=== PATIENT | male | born 1960 | race Caucasian/White ===

== ENCOUNTER 2016-05-27 09:33 | Inpatient (IN) | payer OTHER ==
[~2016-05-27] VITALS: Ht 182.9 cm; Wt 172.4 kg
[~2016-05-27 09:33] MED LIST: AMOXIL500 MG PO; BACTRIM DS 8001 TAB PO; CEFTIN 250 #201 PAC PO; COUMADIN 10 MG10 MG PO; DILTIAZEM HCL240 MG PO; GLUCOPHAGE500 MG PO; K-DUR 20MEQ TA20 MEQ PO; LANOXIN-DIGO0.125 MG PO; LASIX40 MG PO; LOPRESSOR 12.12.5 MG PO; MELATONIN5 M1 PO; MYCOSTATIN POWD15 GM TOP; NICODERM C21 MG/24 H TOP; Senokot S PO; VENTOLIN1 PUF INH
--- NOTE | 2016-05-27 09:52 | ED DYSPNEA/ASTHMA COMPLAINT ---
History of Present Illness General Chief Complaint: Upper Respiratory Sx/Fever Stated Complaint: URI Source: patient, old records Exam Limitations: no limitations Vital Signs & Intake/Output Vital Signs & Intake/Output Vital Signs Date Time Temp Pulse Resp B/P Pulse O2 O2 Flow FiO2 Ox Delivery Rate 05/27 1242 98 96 05/27 1214 85 Nasal 5.0L Cannula 05/27 1202 96.9 95 20 126/66 84 Nasal 4.0L Cannula 05/27 1034 92 Nasal 5.0L Cannula 05/27 1026 95 Nasal 2.0L Cannula 05/27 0945 96.5 106 18 145/96 88 Room Air Allergies Coded Allergies: NO KNOWN ALLERGIES (09/21/13) Reconcile Medications Digoxin 125 MCG TABLET 1 TAB PO 1700 HEART (Reported) Diltiazem HCl (Diltiazem 24HR ER) 240 MG CAP.ER.24H 1 CAP PO DAILY HEART ( Reported) Furosemide 40 MG TABLET 1 TAB PO BID WATER PILL (Reported) Metformin HCl 500 MG TABLET 1 TAB PO BID DIABETES (Reported) Metoprolol Tartrate 25 MG TABLET 0.5 TAB PO BID HEART (Reported) Potassium Chloride 20 MEQ TAB.ER.PRT 1 TAB PO DAILY SUPPLEMENT (Reported) Warfarin Sodium (Coumadin) 10 MG TABLET 1 TAB PO DAILY BLOOD THINNER ( Reported) Triage Note: 56 Y/O MALE C/O URI SYMPTOMS X 1 WEEK; C/O NASAL CONGESTION, WATERY EYES AND CONGESTED COUGH - "THE COUGH IS GETTING BETTER". REDNESS AND TEARY NOTED TO BILATERAL EYES; PT STATES BOTH WERE CRUSTED THIS AM. SPEAKING CLEARLY WITH NO DISTRESS, CONGESTED COUGH NOTED. DIFFICULTY OBTAINING PULSE OX IN TRIAGE, BEST READING 88%. PT STATES HE USED TO USE OXYGEN AT HOME BUT NO LONGER DOES. TAKEN TO ROOM FOR EVAL. Triage Nurses Notes Reviewed? yes Onset: Abrupt Duration: week(s): (1), constant, getting worse Timing: recent history Severity: moderate, severe Prior Episodes/Possible Cause: occasional episodes Modifying Factors: Worsens With: movement. Associated Symptoms: cough HPI: 56-year-old male with history of COPD no longer on home o2, diabetes A flutter was been noncompliant with his medications for the past 9 months secondary to insurance presents emergency room complaining of progressively worsening cough productive of clear sputum congestion difficulty sleeping secondary to symptoms and chills. Patient denies fevers however positive sick contacts at work. No pain with inspiration no chest pain dizziness lightheadedness no abdominal pain nausea vomiting or diarrhea. The patient is a daily smoker. Symptoms are worse with lying flat at night, he denies any leg swelling or difficulty urinating. He has not sought care for the symptoms until today. The patient was previously on Coumadin R states that his physician took him off of this prior to him running out of his other medications. There is no hemoptysis (CANDIDO SORIANO) Past History Travel History Traveled to [place] past 21 day No Medical History Any Pertinent Medical History? 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 No (CANDIDO SORIANO) Review of Systems Review of Systems Constitutional: Reports: see HPI. All Other Systems: Reviewed and Negative Comments Review of systems: See HPI, All other systems negative. Constitutional, no chills no fever, no malaise HEENT: No visual changes no sore throat no congestion Cardiovascular: No chest pain , no palpitation Skin, no jaundice no rashes, no change in skin Respiratory: No dyspnea no cough no sputum GI: No nausea no vomiting, no diarrhea, : No dysuria Muscle skeletal: No joint pain,, no back pain, no neck pain, Neurologic: No numbness no headache Psych: No stress . Heme/endocrine: No bruising no bleeding Immunology: No lymphadenopathy (CANDIDO SORIANO) Physical Exam Physical Exam General Appearance: well developed/nourished Respiratory: wheezing Comments: Well-developed well-nourished person in no acute distress HEENT: Normal EENT exam; PERRL, EOMI, HEAD is atraumatic. moist mucous membranes. Neck: Supple, normal range of motion Back: Nontender, no CVA tenderness. Full range of motion Cardiovascular: Regular rate and rhythms no murmurs rubs or gallops, normal JVP Respiratory: Chest nontender.There were no bony deformities, no asymmetry. No respiratory distress. Patient speaking in full complete sentences. Wheezing bilaterally no rhonchi no rales Abdomen: Soft, morbidly obese, large umbilical hernia nontender, the remainder of the abdomen is nontender nondistended, no appreciable organomegaly. Normal bowel sounds. No rebound/guarding, No appreciable enlargement of the abdominal aorta, No ascites. Extremity: No edema, full range of motion of extremities, normal and equal pulses bilaterally, 5 out of 5 strength noted to bilateral upper and lower extremities Neuro: Alert oriented x3, motor sensory normal, . There were no obvious focal neurologic abnormalities. Skin: No appreciable rash on exposed skin, skin is warm and dry. Psych: Mood and affect is normal, memory and judgment is normal. Core Measures ACS in differential dx? Yes Severe Sepsis Present: No Septic Shock Present: No (BROOK OSMAN,CANDIDO) Progress Differential Diagnosis: asthma, AMI, bronchitis, CHF, COPD, musculoskeletal pain , pericarditis, pulmonary embolism, pneumonia, pneumothorax, unstable angina, influenza Plan of Care: Orders Procedure Date/time Status CBC WITHOUT DIFFERENTIAL 05/28 06 Active BASIC ELECTROLYTES PLUS BUN&CR 05/28 0600 Active Consistent Carbohydrate 2 05/27 D Active Change service to 05/27 1403 Active Teach/Educate 05/27 1348 Active Pain Treatment and Response 05/27 1348 Active Nutritional Intake, Monitor 05/27 1348 Active Isolation 05/27 1348 Active Patient Care Conference 05/27 1348 Active ARTERIAL BLOOD GAS (GEN) 05/27 1330 Active Code Status 05/27 1240 Active RAPID VIRAL INFLUENZA A 05/27 1207 Active STREP PNEUMO URINARY ANTIGEN 05/27 1207 Active LEGIONELLA URINARY ANTIGEN 05/27 1207 Active LOWER RESPIRATORY CULTURE 05/27 1207 Active Saline Lock 05/27 1206 Active Pathway - chart 05/27 1206 Active Admit to inpatient 05/27 1206 Active Activity/Ambulation 05/27 1206 Active Code Status 05/27 1206 Complete Pathway - chart 05/27 1205 Active Patient Data 05/27 1156 Active ARTERIAL BLOOD GAS (GEN) 05/27 1148 Complete GLYCOSYLATED HGB 05/27 1035 Active DIRECT BILIRUBIN 05/27 1035 Active Intake & Output 05/27 1024 Active RAPID VIRAL INFLUENZA A 05/27 1004 Complete BLOOD CULTURE 03/08 1004 Active TROPONIN LEVEL 05/27 958 Active PROTHROMBIN TIME 05/27 958 Complete COMPREHENSIVE METABOLIC PANEL 05/27 958 Active CBC WITHOUT DIFFERENTIAL 05/27 958 Complete EKG 05/27 958 Active TRC EVALUATION (GEN) 05/27 UNK Active PULSE OXIMETRY (GEN) 05/27 UNK Active OXYGEN SETUP (GEN) 05/27 UNK Active BIPAP 05/27 UNK Complete House Staff 05/27 UNK Active Lab Add-on Test 05/27 UNK Active VTE Mechanical Prophylaxis 05/27 UNK Active Vital Signs 05/27 UNK Active Telemetry/Activity Aid 05/27 UNK Active FingerStick- Glucose 05/27 UNK Active Current Medications Sig/Denny Start time Last Medication Dose Stop Time Status Admin Azithromycin 500 MG DAILY 05/28 1000 AC (Zithromax) Dextrose/Water 250 ML (D5W) Insulin Aspart 0 TIDAC 05/27 1700 AC (NovoLOG) Heparin Sodium 5,000 UNIT Q8 05/27 1400 AC (Porcine) Methylprednisolone 40 MG Q8 05/27 1400 AC (Solumedrol) Acetaminophen 650 MG Q6 PRN 05/27 1215 AC (Tylenol) Morphine Sulfate 4 MG Q6-PRN PRN 05/27 1215 AC (Morphine) Oxycodone/ 1 TAB Q6P PRN 05/27 1215 AC Acetaminophen (Percocet) Laboratory Tests 05/27/16 1352: pH 7.40, pCO2 60 *H, pO2 66 L, HCO3 37 H, ABG O2 Sat (Measured) 90.0 L, P-50 (Temp Corrected) N, Carboxyhemoglobin 3.3, O2 Concentration % 40, Temperature 96.9 L, Respiration Rate 26, O2 Delivery Method BIPAP, Vent Mode ST, Expiratory Pressure 6, Inspiratory Pressure 24, Phlebotomy Draw Site RIGHT RADIAL 05/27/16 1155: pH 7.24 *L, pCO2 87 *H, pO2 67 L, HCO3 36 H, ABG O2 Sat (Measured) 85.0 L, Carboxyhemoglobin 4.1, O2 Concentration % 5L, O2 Delivery Method NC, Phlebotomy Draw Site RIGHT RADIAL 05/27/16 1035: Anion Gap 10, Estimated GFR > 60, BUN/Creatinine Ratio 37.0 H, Glucose 131 H, Hemoglobin A1c Pending, Calcium 8.2 L, Total Bilirubin 1.4 H, Direct Bilirubin Pending, AST 25, ALT 40, Alkaline Phosphatase 101, Troponin I < 0.01, Total Protein 6.9, Albumin 3.4 L, Globulin 3.5, Albumin/Globulin Ratio 1.0 L, PT 11.9, INR 1.13, CBC w Diff MAN DIFF ORDERED, RBC 5.61, MCV 88.4, MCH 28.2, RDW 16.5 H, MPV 8.8, Gran % 83.4 H, Lymphocytes % 12.0 L, Monocytes % 3.8, Eosinophils % 0.5, Basophils % 0.3, Absolute Granulocytes 9.8 H, Segmented Neutrophils 75, Band Neutrophils 2, Absolute Lymphocytes 1.4, Lymphocytes 12 L, Monocytes 6, Absolute Monocytes 0.4, Eosinophils 3, Absolute Eosinophils 0.1, Absolute Basophils 0, Metamyelocytes 2 H, Platelet Estimate ADEQUATE, Normocytic RBCs VERIFIED, Normochromic RBCs VERIFIED, Polychromasia 1+, Stomatocytes FEW, PUBS MCHC 31.9 L Microbiology 05/27 120 URINE ROUT: Legionella Antigen - COLB 05/27 120 URINE ROUT: Streptococcus pneumoniae Antigen (M - COLB 05/27 1207 LOWER RESP: Respiratory Culture - COLB 05/27 120 LOWER RESP: Gram Stain - COLB 05/27 1207 NASOPHARYN: Influenza Virus A & B Rapid Smear - COLB 05/27 1035 BLOOD: Blood Culture - RECD 05/27 1025 BLOOD: Blood Culture - RECD 05/27 1019 NASOPHARYN: Influenza Virus A & B Rapid Smear - COMP Labs ordered old records reviewed patient medicated with Solu-Medrol 125IV, AZITHRO 500MG IV DuoNeb Patient noted to be satting 88% on 4 L ABG ordered case discussed with Dr. GUSTAFSON Discussed with the patient all his lab results x-ray findings need for admission given oxygen saturation H and noted to still be wheezing DuoNeb ordered CASE D/W DR GUTIERREZ WILL ADMIT (BROOK OSMAN,CANDIDO) Diagnostic Imaging: Viewed by Me: Radiology Read. Discussed w/RAD: Radiology Read. Radiology Impression: PATIENT: KATHY GEORGE PRESENT AGE: 56 PATIENT ACCOUNT NO: [id number] : 60 LOCATION: [facility] ORDERING PHYSICIAN: CANDIDO OSMAN SERVICE DATE: 05/27/16 EXAM TYPE: RAD - XRY-PORTABLE CHEST XRAY EXAMINATION: XR PORTABLE CHEST CLINICAL INFORMATION: Cough dyspnea. Evaluate for CHF pneumonia COMPARISON: Chest x-ray August 2013 TECHNIQUE: Portable AP view of the chest was obtained. FINDINGS: Exam is slightly limited as the left costophrenic angle is outside the [id number] with examination. The lungs are otherwise clear. The cardiac silhouette mediastinum pulmonary vascularity are normal. Incidental note is made of postsurgical changes in the lower cervical spine with plate and screw fixation noted. IMPRESSION: No acute disease Slightly limited examination as the left costophrenic angle is outside the field of view of the exam DICTATED BY: KATHY YOUNG MD DATE/TIME DICTATED:05/27/161047 OPTICAL INSTRUMENT ASSEMBLY SUPERVISOR: GARFIELD DATE/TIME TRANSCRIBED:05/27/161047 CONFIDENTIAL, DO NOT COPY WITHOUT APPROPRIATE AUTHORIZATION. <Electronically signed in Other Vendor System> SIGNED BY: KATHY YOUNG MD 05/27/16 1052 Initial ED EKG: SINUS TACH AT 100, RIGHT BUNDLE BRANCH BLOCK, NO ACUTE st SEGMENT CHANGES NORMAL AXIS Prior EKG: unchanged (08/2013) Rhythm Strip: normal sinus rhythm (CANDIDO SORIANO) Departure Departure Time of Disposition: 1150 Disposition: STILL A PATIENT Condition: Stable Clinical Impression Primary Impression: COPD exacerbation Secondary Impressions: Acute respiratory failure with hypoxia and hypercapnia Referrals: ALEXANDREA CUEVAS MD Departure Forms: Customer Survey General Discharge Information Admission Note Spoke With: MATT FREEDMAN,DIMA Documentation of Exam: Documentation of any treatments & extenuating circumstances including Concerns Regarding Discharge (functional status, medication knowledge or non-compliance, living conditions, etc.) that warrant an admission rather than observation: Trend labs pulmonology consult IV steroids IV antibiotics and respiratory treatments when necessary premature discharge would BE medically harmful (CANDIDO SORIANO) PA/APPLICATION SYSTEMS ENGINEER Co-Sign Statement Statement: ED Attending supervision documentation- x I saw and evaluated the patient. I have also reviewed all the pertinent lab results and diagnostic results. I agree with the findings and the plan of care as documented in the PA's/APPLICATION SYSTEMS ENGINEER's documentation. [] I have reviewed the ED Record and agree with the PA's/APPLICATION SYSTEMS ENGINEER's documentation. [] Additions or exceptions (if any) to the PAs/APPLICATION SYSTEMS ENGINEER's note and plan are summarized below: [] (SJ FREEDMAN,PADMINI) Critical Care Note Critical Care Note Critical Care Time: non-applicable (BROOK OSMAN,CANDIDO)
--- NOTE | 2016-05-27 10:24 | NUR ---
FLU SWAB OBTAINED AND SENT. 20G IV INSERTED TO RIGHT AC. RT AT BEDSIDE FOR TX
[2016-05-27 10:49] LABS: ABSOLUTE BASOPHIL COUNT 0 /CUMM (0.0-0.2); ABSOLUTE EOSINOPHIL COUNT 0.1 /CUMM (0.0-0.7); ABSOLUTE GRANULOCYTE CT 9.8 /CUMM (1.4-6.5); ABSOLUTE LYMPH COUNT 1.4 /CUMM (1.2-3.4); ABSOLUTE MONOCYTE COUNT 0.4 /CUMM (0.10-0.60); BASOPHIL % 0.3 % (0.0-2.0); EOSINOPHIL % 0.5 % (0-5); GRANULOCYTE % 83.4 % (42.2-75.2); HEMATOCRIT 49.6 % (42-52); MEAN CORPUSCULAR HGB 28.2 PG (27.0-31.0); MEAN CORPUSCULAR HGB CONC 31.9 G/DL (33.0-37.0); MEAN CORPUSCULAR VOLUME 88.4 FL (80.0-94.0); MEAN PLATELET VOLUME 8.8 FL (7.4-10.4); PLATELET COUNT 163 /CUMM (130-400); RBC DISTRIBUTION WIDTH 16.5 % (11.5-14.5); RED BLOOD CELL CT 5.61 /CUMM (4.70-6.10); WHITE BLOOD CELL COUNT 11.7 /CUMM (4.8-10.8)
[2016-05-27 10:50] LABS: PT 11.9 SEC (9.4-12.5)
--- NOTE | 2016-05-27 10:52 | RADIOLOGY REPORT ---
EXAMINATION: XR PORTABLE CHEST CLINICAL INFORMATION: Cough dyspnea. Evaluate for CHF pneumonia COMPARISON: Chest x-ray August 2013 TECHNIQUE: Portable AP view of the chest was obtained. FINDINGS: Exam is slightly limited as the left costophrenic angle is outside the [id number] with examination. The lungs are otherwise clear. The cardiac silhouette mediastinum pulmonary vascularity are normal. Incidental note is made of postsurgical changes in the lower cervical spine with plate and screw fixation noted. IMPRESSION: No acute disease Slightly limited examination as the left costophrenic angle is outside the field of view of the exam
--- NOTE | 2016-05-27 11:12 | NUR ---
PT MEDICATED WITH SOLUMEDROL IV PER eMAR.
[2016-05-27] MEDS ORDERED: DIGOXIN125 MCG PO (11:39)
[2016-05-27] MEDS ORDERED: DILTIAZEM 24HR240 MG PO (11:40)
[2016-05-27] MEDS ORDERED: FUROSEMIDE40 M1 PO (11:41)
[2016-05-27] MEDS ORDERED: METFORMIN HCL500 M3 PO (11:42)
[2016-05-27] MEDS ORDERED: METOPROLOL TART25 M1 PO (11:44)
[2016-05-27] MEDS ORDERED: POTASSIUM CHLO20 ME2 PO (11:44)
[2016-05-27] MEDS ORDERED: COUMADIN10 M1 PO (11:45)
--- NOTE | 2016-05-27 11:46 | NUR ---
RESP. CALLED FOR ALBUTORAL TREATMENT PER JACQUI DOE
--- NOTE | 2016-05-27 12:00 | History & Physical ---
BEVERLEY PENA 05/27/16 1157: General Information and HPI MD Statement: I have seen and personally examined KATHY GEORGE and documented this H&P. The patient is a 56 year old M who presented with a patient stated chief complaint of [nasal congestion, watery eyes, cough]. Source of Information: patient Exam Limitations: no limitations History of Present Illness: According to the patient he was in his usual state of health up until 2 weeks ago when he is first started to experience upper respiratory tract symptoms including sore throat, congestion, runny nose and started to bring up chunky phlegm which was clear. He states that his breathing since then has continued to worsen. Denies any fever, chills but does admit to having people sick around him. He denies any nausea, vomiting, any allergen exposure and/or exposure to pets or birds. 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 He is a current smoker and has been smoking since the age of 15 years about one pack every day. Of note he is supposed to be on CPAP for obstructive sleep apnea but has not had been on one because of insurance issues. Of note he never really followed up with any physician after he was discharged back in 2013. He denies any chest pain, headache, dizziness, frontal sinus tenderness, orthopnea, PND, swelling in his lower extremities, abdominal pain, nausea, vomiting, changes in his bowel habits. He deneis having taken a flu shot this past season. He also denies SI/HI. States SOB has worsened from the paoint taht he was able to take a couiple of flight of stairs without getting short of breath, but is now having incraesing difficulty walking a few feet. Allergies/Medications Allergies: Coded Allergies: NO KNOWN ALLERGIES (09/21/13) Home Med list Digoxin 125 MCG TABLET 1 TAB PO 1700 HEART (Reported) Diltiazem HCl (Diltiazem 24HR ER) 240 MG CAP.ER.24H 1 CAP PO DAILY HEART ( Reported) Furosemide 40 MG TABLET 1 TAB PO BID WATER PILL (Reported) Metformin HCl 500 MG TABLET 1 TAB PO BID DIABETES (Reported) Metoprolol Tartrate 25 MG TABLET 0.5 TAB PO BID HEART (Reported) Potassium Chloride 20 MEQ TAB.ER.PRT 1 TAB PO DAILY SUPPLEMENT (Reported) Warfarin Sodium (Coumadin) 10 MG TABLET 1 TAB PO DAILY BLOOD THINNER ( Reported) Compliance With Home Meds: POOR Past History Travel History Traveled to [place] past 21 day No Medical History Neurological: NONE EENT: NONE Cardiovascular: aflutter Respiratory: COPD Gastrointestinal: NONE Hepatic: NONE Renal: NONE Musculoskeletal: NONE Psychiatric: NONE Endocrine: diabetes Blood Disorders: NONE Cancer(s): NONE 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 Home Who Do You Live With? 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 Denies: chills, diaphoresis, fever. EENTM: Reports: nasal congestion. Denies: visual changes, eye pain, eye drainage, eye tearing, hearing changes. Cardiovascular: Denies: chest pain, edema, orthopena, palpitations, peripheral edema, syncope. Respiratory: Reports: cough, short of breath, sputum production. Denies: hemoptysis, orthopnea, stridor, wheezing. GI: Denies: abdominal pain, constipation, diarrhea, nausea, vomiting. Genitourinary: Reports: no symptoms. Musculoskeletal: Reports: no symptoms. Neurological/Psychological: Reports: weakness. Denies: headache, numbness, tingling, tremors, unable to move lower ext, unable to move upper ext. Exam & Diagnostic Data Last 24 Hrs of Vital Signs/I&O Vital Signs Date Time Temp Pulse Resp B/P Pulse O2 O2 Flow FiO2 Ox Delivery Rate 05/27 1242 98 96 05/27 1214 85 Nasal 5.0L Cannula 05/27 1202 96.9 95 20 126/66 84 Nasal 4.0L Cannula 05/27 1034 92 Nasal 5.0L Cannula 05/27 1026 95 Nasal 2.0L Cannula 05/27 0945 96.5 106 18 145/96 88 Room Air Intake & Output 05/27 1600 05/27 0800 05/27 0000 Intake Total Output Total Balance Patient 290 lb Weight Physical Exam General Appearance Alert, Oriented X3, Cooperative, No Acute Distress, morbidly obese HEENT Atraumatic, PERRLA, EOMI, has purulent drainage from his eyes bilaterally Neck Supple, No JVD, No thryomegaly, +2 Carotid Pulse wo Bruit, No LAD Cardiovascular Regular Rate, Normal S1, Normal S2, No Murmurs Lungs B/L ronchi, on BIPAP Abdomen Normal Bowel Sounds, Soft, No Tenderness Neurological Normal Speech, Strength at 5/5 X4 Ext, Normal Tone, Sensation Intact, Cranial Nerves 3-12 NL, Reflexes 2+ Extremities b/l chronic venous stasis changes Last 24 Hrs of Labs/Isaias: Laboratory Tests 05/27/16 1155: pH 7.24 *L, pCO2 87 *H, pO2 67 L, HCO3 36 H, ABG O2 Sat (Measured) 85.0 L, Carboxyhemoglobin 4.1, O2 Concentration % 5L, O2 Delivery Method NC, Phlebotomy Draw Site RIGHT RADIAL 05/27/16 1035: Anion Gap 10, Estimated GFR > 60, BUN/Creatinine Ratio 37.0 H, Glucose 131 H, Hemoglobin A1c Pending, Calcium 8.2 L, Total Bilirubin 1.4 H, AST 25, ALT 40, Alkaline Phosphatase 101, Troponin I < 0.01, Total Protein 6.9, Albumin 3.4 L, Globulin 3.5, Albumin/Globulin Ratio 1.0 L, PT 11.9, INR 1.13, CBC w Diff MAN DIFF ORDERED, RBC 5.61, MCV 88.4, MCH 28.2, RDW 16.5 H, MPV 8.8, Gran % 83.4 H , Lymphocytes % 12.0 L, Monocytes % 3.8, Eosinophils % 0.5, Basophils % 0.3, Absolute Granulocytes 9.8 H, Segmented Neutrophils 75, Band Neutrophils 2, Absolute Lymphocytes 1.4, Lymphocytes 12 L, Monocytes 6, Absolute Monocytes 0.4 , Eosinophils 3, Absolute Eosinophils 0.1, Absolute Basophils 0, Metamyelocytes 2 H, Platelet Estimate ADEQUATE, Normocytic RBCs VERIFIED, Normochromic RBCs VERIFIED, Polychromasia 1+, Stomatocytes FEW, PUBS MCHC 31.9 L Microbiology 05/27 1206 URINE ROUT: Legionella Antigen - COLB 05/27 1206 URINE ROUT: Streptococcus pneumoniae Antigen (M - COLB 03/08 1207 LOWER RESP: Respiratory Culture - COLB 05/27 1207 LOWER RESP: Gram Stain - COLB 05/27 1207 NASOPHARYN: Influenza Virus A & B Rapid Smear - COLB 05/27 1035 BLOOD: Blood Culture - RECD 05/27 1025 BLOOD: Blood Culture - RECD 05/27 1019 NASOPHARYN: Influenza Virus A & B Rapid Smear - COMP Diagnostic Data EKG Results Sinus tachycardia HR: 101, RBBB, left axis deviation, [place]: 188, QTc: 493, no ST-T changes CXR Results FINDINGS: Exam is slightly limited as the left costophrenic angle is outside the [id number] with examination. The lungs are otherwise clear. The cardiac silhouette mediastinum pulmonary vascularity are normal. Incidental note is made of postsurgical changes in the lower cervical spine with plate and screw fixation noted. IMPRESSION: No acute disease Slightly limited examination as the left costophrenic angle is outside the field of view of the exam Assessment/Plan Assessment: 56-year-old male with a past medical history of [id number] diabetes mellitus, atrial flutter, COPD currently not on home oxygen, was noncompliant with his medications for the past 9 months secondary to insurance issues presented to the ED with chief complaints of progressively worsening productive nonpurulent cough, congestion, difficulty sleeping. Vitals at the time of admission blood pressure 145/96, respiratory rate 18, pulse 106 afebrile saturating 88% on room air. On physical exam he is alert and oriented 3 and in no acute distress sitting comfortably in bed. HEENT revealed PERRLA, EOMI, discharge from both of his eyes. Examination of the neck did not reveal any JVD, or cervical lymphadenopathy. Cardiac exam revealed normal S1, S2, no murmurs appreciated. Auscultation of the chest revealed bilateral coarse rhonchi. Abdominal exam was benign with abdomen soft, nontender, nondistended normal bowel sounds in all 4 quadrants. Examination of the extremities revealed chronic bilateral venous stasis changes, no asymmetry noted. Labs pertinent for leukocytosis with a white blood cell count of 11,700, 2 bands and H&H of 15.8/49.6, platelet count 160,000. Serum chemistries reveal sodium of 139, potassium of 4.5, bicarbonate of 38, anion gap 10, BUN 37 and a creatinine of 1.0. Glucose elevated to 131, and LFTs pertinent for an elevated total bili 1.4, normal AST/ALT 25/40, alkaline phosphatase of 101 with first set of troponin negative is less than 0.01. INR within normal limits at 1.13 Chest x-ray was done which shows no acute disease, cardiac silhouette fluids, mediastinal and pulmonary vasculature is normal. Last Echo done in Mar 2015, ef: 60-65%, no RWMA. Lipomatous hypertrophy of the interatrial septum is present. There is no evidence of atrial level shunt on the current study. In the ER he received Solu-Medrol 125 mg IV 1, albuterol inhaler, Atrovent and was started on azithromycin Assessment and plan Admit Patient to Telemetry for continuos pulse oximetry #Acute hypoxemic and hypercarbic respiratory failure Most likely secondary to COPD exacerbation from viral bversus pneumonia versus bronchitis Placed on NIV. F/U ABG in 1hr @1:30pm IV Solumedrol 40mg IV Q8 Azithromycin for antiinflammatory properties. Send for rapid flu, lower respiratory culture, urinary antigen for strep and Legionella A no to maintain saturations greater than 92% Place pulmonary consult with Dr. Escobar Patient is currently on BiPAP after his ABG showed severe respiratory acidosis Follow-up home recommendations. #History of Atrial flutter - Going through records reveals that the patient should be on diltiazem 2040 mg extended release, furosemide 40 mg twice a day, metoprolol 12.5 mg twice a day as well as on warfarin however according to the patient has not had insurance for the past 9 months has not any medications. #Xxk-jpnthxf-gnyowuajr diabetes mellitus Was supposed to be on metformin 500 mg twice a day Follow-up hemoglobin A1c NovoLog sliding scale for now Accu-Cheks 3 times a day at bedtime - DVT Prophylaxis Heparin 5000IU TID SC - Diet Diabetic - Code Status - DNR/DNI As Ranked By This Provider Problem List: 1. Acute respiratory failure with hypoxia and hypercapnia 2. COPD exacerbation Core Measures/Miscellaneous Acute Coronary Syndrome ACS Diagnosis: No Cerebrovascular Accident CVA/TIA Diagnosis: No Congestive Heart Failure CHF Diagnosis: No Venous Thromboembolism VTE Risk Factors: Age > 40 No [facility] VTE prophylaxis d/t: No contraindications No VTE Pharm Prophylaxis d/t: No contraindications VTE Diagnosis: No VTE Type: NONE VTE Confirmed by (Test): NONE Severe Sepsis Severe Sepsis Present: No Septic Shock Septic Shock Present: No Miscellaneous Documentation Attending Case Discussed With: Dr. Anguiano Primary Care Physician: PATIENT HAS NO PRIMARY CARE DR Patient sees these Specialists None Level of Patient Care: General Medicine Consults Needed: Consulting Specialty: Pulmonary Disease Resident Review Statement Resident Statement: admitted by resident SILVIA FREEDMAN,RUBEN 05/27/16 1433: Attending MD Review Statement Attending Statement Attending MD Statement: examined this patient, discuss w/resident/PA/POWER SCREWDRIVER OPERATOR, agreed w/resident/PA/POWER SCREWDRIVER OPERATOR, reviewed EMR data (avail), discussed with nursing, reviewed images, amended to note Attending Assessment/Plan: 56 y/o with pmh sig for copd, john on cpap, aflutter, med non compliance 2/2 to loosing insurance, who is is p/w sob, vasquez x 2 weeks. His fried saw him and felt that he should be brought to hospital. Patient is supposed to take his cardiac medications as well as inhalers which she has not been doing. He lost his insurance about 8 or 9 months ago and since then he has been out of medications. He has had sick exposures. He has been complaining of nasal congestion, chest congestion as well as shortness of breath and dyspnea on exertion. He does not use oxygen at home but his oxygen saturations were very low in the emergency room. He was also found to be hypercarbic and he was in hypercarbic resp failure. He denies any chest pain, fevers, chills, abdominal pain, nausea vomiting. 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 Ng Vital Signs Date Time Temp Pulse Resp B/P Pulse O2 O2 Flow FiO2 Ox Delivery Rate 05/27 1434 96 05/27 1242 98 96 05/27 1214 85 Nasal 5.0L Cannula 05/27 1202 96.9 95 20 126/66 84 Nasal 4.0L Cannula 05/27 1034 92 Nasal 5.0L Cannula 05/27 1026 95 Nasal 2.0L Cannula 05/27 0945 96.5 106 18 145/96 88 Room Air on exam; aox 3, mild - mod distress 2/2 to sob abd wearing BIPAP. cv; s1, s2, rrr heent; abcess looking structure behid the right ear, + b/l conjunctival erythema and yellowish discahrge. resp; coarse bs b/l. abd; soft, nt, bs+, + obese abd. ext; 2+ edema with ch venous stasis changes. Laboratory Tests 05/27 05/27 1352 1155 Blood Gas pH (7.35 - 7.45 PH) 7.40 7.24 *L pCO2 (35 - 45 TORR) 60 *H 87 *H pO2 (80 - 100 TORR) 66 L 67 L HCO3 (21 - 28 MEQ/L) 37 H 36 H ABG O2 Sat (Measured) (>96.0 %) 90.0 L 85.0 L P-50 (Temp Corrected) N Carboxyhemoglobin (1.5 - 5.0 %) 3.3 4.1 O2 Concentration % 40 5L Temperature (97.0 - 100.0 FARH) 96.9 L Respiration Rate (BPM) 26 O2 Delivery Method BIPAP NC Vent Mode ST Expiratory Pressure (CM H2O P) 6 Inspiratory Pressure (CM H2O P) 24 Miscellaneous Phlebotomy Draw Site RIGHT RADIAL RIGHT RADIAL 05/27 1035 Chemistry Sodium (137 - 145 mmol/L) 139 Potassium (3.5 - 5.1 mmol/L) 4.5 Chloride (98 - 107 mmol/L) 92 L Carbon Dioxide (22 - 30 mmol/L) 38 H Anion Gap (5 - 16) 10 BUN (9 - 20 mg/dL) 37 H Creatinine (0.7 - 1.2 mg/dL) 1.0 Estimated GFR (>60 ml/min) > 60 BUN/Creatinine Ratio (7 - 25 %) 37.0 H Glucose (65 - 99 mg/dL) 131 H Hemoglobin A1c (4.2 - 5.8 %) Pending Calcium (8.4 - 10.2 mg/dL) 8.2 L Total Bilirubin (0.2 - 1.3 mg/dL) 1.4 H Direct Bilirubin (< 0.4 mg/dL) 0.9 H AST (17 - 59 U/L) 25 ALT (21 - 72 U/L) 40 Alkaline Phosphatase (< 127 U/L) 101 Troponin I (<0.11 ng/ml) < 0.01 Total Protein (6.3 - 8.2 g/dL) 6.9 Albumin (3.5 - 5.0 g/dL) 3.4 L Globulin (1.9 - 4.2 gm/dL) 3.5 Albumin/Globulin Ratio (1.1 - 2.2 %) 1.0 L Coagulation PT (9.4 - 12.5 SEC) 11.9 INR (0.90 - 1.17) 1.13 Hematology CBC w Diff MAN DIFF ORDERED WBC (4.8 - 10.8 /CUMM) 11.7 H RBC (4.70 - 6.10 /CUMM) 5.61 Hgb (14.0 - 18.0 G/DL) 15.8 Hct (42 - 52 %) 49.6 MCV (80.0 - 94.0 FL) 88.4 MCH (27.0 - 31.0 PG) 28.2 RDW (11.5 - 14.5 %) 16.5 H Plt Count (130 - 400 /CUMM) 163 MPV (7.4 - 10.4 FL) 8.8 Gran % (42.2 - 75.2 %) 83.4 H Lymphocytes % (20.5 - 51.1 %) 12.0 L Monocytes % (1.7 - 9.3 %) 3.8 Eosinophils % (0 - 5 %) 0.5 Basophils % (0.0 - 2.0 %) 0.3 Absolute Granulocytes (1.4 - 6.5 /CUMM) 9.8 H Segmented Neutrophils (42.2 - 75.2 %) 75 Band Neutrophils (0.0 - 5.0 %) 2 Absolute Lymphocytes (1.2 - 3.4 /CUMM) 1.4 Lymphocytes (20.5 - 51.1 %) 12 L Monocytes (1.7 - 9.3 %) 6 Absolute Monocytes (0.10 - 0.60 /CUMM) 0.4 Eosinophils (0 - 5.0 %) 3 Absolute Eosinophils (0.0 - 0.7 /CUMM) 0.1 Absolute Basophils (0.0 - 0.2 /CUMM) 0 Metamyelocytes (0.0 - 1.0 %) 2 H Platelet Estimate (ADEQUATE) ADEQUATE Normocytic RBCs VERIFIED Normochromic RBCs VERIFIED Polychromasia 1+ Stomatocytes FEW PUBS MCHC (33.0 - 37.0 G/DL) 31.9 L CXR: Impression; No acute disease Slightly limited examination as the left costophrenic angle is outside the field of view of the exam EKG>. sinus rhythm. A/P; 66-year-old male with past medical history significant for COPD, JOHN, atrial flutter, medication noncompliance secondary to losing insurance who is admitted with acute hypercarbic respiratory failure, acute exacerbation of COPD and bronchitis, acute conjunctivitis and also abscess looking structure behind the right ear. Patient admitted to telemetry for continuous pulse ox. He will need BiPAP nocturnally as per pulmonology, appreciate pulmonology input. Continue IV steroids as well as azithromycin. Continue TRC nebs. Please start antibiotics eyedrops and surgery will be consulted for the abscess. We need to get psychotherapist social worker to help him with insurance. Please consult cardiology to help resuming his cardiac medications. His last echocardiogram was over a year ago, please get an echo. His total bili is high, other LFTs are normal and patient is asymptomatic. Will monitor. DVT prophylaxis: Heparin subcutaneous. CODE STATUS DNR/DNI.
--- NOTE | 2016-05-27 12:04 | NUR ---
O2 SATS 84% ON 4L O2 VIA N/C. JACQUI DOE AWARE. ABG'S PERFORMED BY REESP THERAPIST MED NEB TX GIVEN TO PT BY SAME PT MEDICATED WITH 500 MG ZITHROMAX IVSS
--- NOTE | 2016-05-27 14:21 | Cons- Pulmonary ---
General Information and HPI Consulting Request Date of Consult: 05/27/16 Requested By: zion Reason for Consult: acute On Chronic Hypercapnic respiratory failure History of Present Illness: 56-year-old gentleman with COPD morbid obesity obstructive sleep apnea continues to smoke. With congestion was found to have acute on chronic hypercapnic respiratory failure And is improved with arterial blood gases likely at baseline level of hypercarbia and no fever skin sputum but recent URI symptoms he denies chest pain. Allergies/Medications Allergies: Coded Allergies: NO KNOWN ALLERGIES (09/21/13) Home Med List: Digoxin 125 MCG TABLET 1 TAB PO 1700 HEART (Reported) Diltiazem HCl (Diltiazem 24HR ER) 240 MG CAP.ER.24H 1 CAP PO DAILY HEART ( Reported) Furosemide 40 MG TABLET 1 TAB PO BID WATER PILL (Reported) Metformin HCl 500 MG TABLET 1 TAB PO BID DIABETES (Reported) Metoprolol Tartrate 25 MG TABLET 0.5 TAB PO BID HEART (Reported) Potassium Chloride 20 MEQ TAB.ER.PRT 1 TAB PO DAILY SUPPLEMENT (Reported) Warfarin Sodium (Coumadin) 10 MG TABLET 1 TAB PO DAILY BLOOD THINNER ( Reported) Review of Systems Review of Systems Constitutional: Denies: chills, fever. Cardiovascular: Denies: chest pain. Respiratory: Reports: cough, short of breath. Denies: hemoptysis, sputum production. GI: Denies: abdominal pain, diarrhea, melena. 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 Home Who Do You Live With? 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 On nasal oxygen.heent T exam shows bilateral conjunctivitis chest shows decreased breath sounds are no wheezes cardiac exam shows regular S1 and S2 without murmurs abdominal exam is soft nontender his extremities have 2+ symmetrical edema Last 48 Hrs of Labs/Isaias: Laboratory Tests 05/27/16 1352: pH 7.40, pCO2 60 *H, pO2 66 L, HCO3 37 H, ABG O2 Sat (Measured) 90.0 L, P-50 (Temp Corrected) N, Carboxyhemoglobin 3.3, O2 Concentration % 40, Temperature 96.9 L, Respiration Rate 26, O2 Delivery Method BIPAP, Vent Mode ST, Expiratory Pressure 6, Inspiratory Pressure 24, Phlebotomy Draw Site RIGHT RADIAL 05/27/16 1155: pH 7.24 *L, pCO2 87 *H, pO2 67 L, HCO3 36 H, ABG O2 Sat (Measured) 85.0 L, Carboxyhemoglobin 4.1, O2 Concentration % 5L, O2 Delivery Method NC, Phlebotomy Draw Site RIGHT RADIAL 05/27/16 1035: Anion Gap 10, Estimated GFR > 60, BUN/Creatinine Ratio 37.0 H, Glucose 131 H, Hemoglobin A1c Pending, Calcium 8.2 L, Total Bilirubin 1.4 H, Direct Bilirubin Pending, AST 25, ALT 40, Alkaline Phosphatase 101, Troponin I < 0.01, Total Protein 6.9, Albumin 3.4 L, Globulin 3.5, Albumin/Globulin Ratio 1.0 L, PT 11.9, INR 1.13, CBC w Diff MAN DIFF ORDERED, RBC 5.61, MCV 88.4, MCH 28.2, RDW 16.5 H, MPV 8.8, Gran % 83.4 H, Lymphocytes % 12.0 L, Monocytes % 3.8, Eosinophils % 0.5, Basophils % 0.3, Absolute Granulocytes 9.8 H, Segmented Neutrophils 75, Band Neutrophils 2, Absolute Lymphocytes 1.4, Lymphocytes 12 L, Monocytes 6, Absolute Monocytes 0.4, Eosinophils 3, Absolute Eosinophils 0.1, Absolute Basophils 0, Metamyelocytes 2 H, Platelet Estimate ADEQUATE, Normocytic RBCs VERIFIED, Normochromic RBCs VERIFIED, Polychromasia 1+, Stomatocytes FEW, PUBS MCHC 31.9 L Microbiology 05/27 1019 NASOPHARYN: Influenza Virus A & B Rapid Smear - COMP Assessment/Plan Impression/Plan: 56-year-old gentleman with multiple reasons for chronic hypercarbia including obesity hypoventilation obstructive sleep apnea and COPD actively smoking. baseline PCO2 is likely at 60 based on pH of a probable viral exacerbation with worsening hypercarbia Recommendations: Recommend nocturnal BiPAP as he likely has significant sleep apnea. Supplemental oxygen to maintain saturations of at least 90%. continue iv steroids and azithromycin patient should have outpatient sleep study counseled regarding the need for smoking cessation Consult Acknowledgment - Thank you for your consult request.
--- NOTE | 2016-05-27 14:33 | NUR ---
INFILTRATION OF LEFT ANTICUBITAL IV NOTED. IV D/C'D. IV RESITED, 22 G MADELIN PLACED IN LEFT WRIST
[2016-05-27 16:00] VITALS: BP 122/70
--- NOTE | 2016-05-27 16:28 | Cons- General Surgery ---
DESTIN HOUSER 05/27/16 1626: General Information and HPI Consulting Request Date of Consult: 05/27/16 Requested By: Reason for Consult: Post-auricular cyst Source of Information: patient, old records Exam Limitations: no limitations History of Present Illness: Patient is a 56-year-old male with hx morbid obesity, niddm, atrial flutter, copd, known to the surgical service in the past for a post-auricular likely sebaceous cyst that has been incised multiple times. He is being admitted to the medical service with acute hypercarbic respiratory failure, acute exacerbation of COPD and bronchitis, acute conjunctivitis and this long-standing non-acute right sided post-auricular likely sebaceous cyst for which the surgical service has been called for consult. The patient reports the cyst has not been bothering him at all, and intermittently drains at times. He denies any recent changes. No purulent drainage or redness noted. No f/c/s. 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 Home Who Do You Live With? 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) Review of Systems Review of Systems: admits: shortness of breath denies: fevers/chills/sweats Exam & Diagnostic Data Vital Signs and I&O Vital Signs Date Time Temp Pulse Resp B/P Pulse O2 O2 Flow FiO2 Ox Delivery Rate 05/27 1537 98.0 82 18 122/70 94 Non ReBreather 05/27 1434 96 05/27 1242 98 96 05/27 1214 85 Nasal 5.0L Cannula 05/27 1202 96.9 95 20 126/66 84 Nasal 4.0L Cannula 05/27 1034 92 Nasal 5.0L Cannula 05/27 1026 95 Nasal 2.0L Cannula 05/27 0945 96.5 106 18 145/96 88 Room Air Intake & Output 05/27 0000 05/26 0000 Intake Total Output Total Balance Patient 290 lb Weight Physical Exam: Patient is afebrile. There is a right sided postauricular cyst appreciated in the posterior/inferior right ear area, which is not currently draining, not red, and not indurated. Last 24 Hours of Labs: Laboratory Tests 05/27 05/27 1352 1155 Blood Gas pH (7.35 - 7.45 PH) 7.40 7.24 *L pCO2 (35 - 45 TORR) 60 *H 87 *H pO2 (80 - 100 TORR) 66 L 67 L HCO3 (21 - 28 MEQ/L) 37 H 36 H ABG O2 Sat (Measured) (>96.0 %) 90.0 L 85.0 L P-50 (Temp Corrected) N Carboxyhemoglobin (1.5 - 5.0 %) 3.3 4.1 O2 Concentration % 40 5L Temperature (97.0 - 100.0 FARH) 96.9 L Respiration Rate (BPM) 26 O2 Delivery Method BIPAP NC Vent Mode ST Expiratory Pressure (CM H2O P) 6 Inspiratory Pressure (CM H2O P) 24 Miscellaneous Phlebotomy Draw Site RIGHT RADIAL RIGHT RADIAL 05/27 1035 Chemistry Sodium (137 - 145 mmol/L) 139 Potassium (3.5 - 5.1 mmol/L) 4.5 Chloride (98 - 107 mmol/L) 92 L Carbon Dioxide (22 - 30 mmol/L) 38 H Anion Gap (5 - 16) 10 BUN (9 - 20 mg/dL) 37 H Creatinine (0.7 - 1.2 mg/dL) 1.0 Estimated GFR (>60 ml/min) > 60 BUN/Creatinine Ratio (7 - 25 %) 37.0 H Glucose (65 - 99 mg/dL) 131 H Hemoglobin A1c (4.2 - 5.8 %) 7.2 H Calcium (8.4 - 10.2 mg/dL) 8.2 L Total Bilirubin (0.2 - 1.3 mg/dL) 1.4 H Direct Bilirubin (< 0.4 mg/dL) 0.9 H AST (17 - 59 U/L) 25 ALT (21 - 72 U/L) 40 Alkaline Phosphatase (< 127 U/L) 101 Troponin I (<0.11 ng/ml) < 0.01 Row-D-Nqveuqjnxyt Pept (<125 pg/mL) 7290 H Total Protein (6.3 - 8.2 g/dL) 6.9 Albumin (3.5 - 5.0 g/dL) 3.4 L Globulin (1.9 - 4.2 gm/dL) 3.5 Albumin/Globulin Ratio (1.1 - 2.2 %) 1.0 L Coagulation PT (9.4 - 12.5 SEC) 11.9 INR (0.90 - 1.17) 1.13 Hematology CBC w Diff MAN DIFF ORDERED WBC (4.8 - 10.8 /CUMM) 11.7 H RBC (4.70 - 6.10 /CUMM) 5.61 Hgb (14.0 - 18.0 G/DL) 15.8 Hct (42 - 52 %) 49.6 MCV (80.0 - 94.0 FL) 88.4 MCH (27.0 - 31.0 PG) 28.2 RDW (11.5 - 14.5 %) 16.5 H Plt Count (130 - 400 /CUMM) 163 MPV (7.4 - 10.4 FL) 8.8 Gran % (42.2 - 75.2 %) 83.4 H Lymphocytes % (20.5 - 51.1 %) 12.0 L Monocytes % (1.7 - 9.3 %) 3.8 Eosinophils % (0 - 5 %) 0.5 Basophils % (0.0 - 2.0 %) 0.3 Absolute Granulocytes (1.4 - 6.5 /CUMM) 9.8 H Segmented Neutrophils (42.2 - 75.2 %) 75 Band Neutrophils (0.0 - 5.0 %) 2 Absolute Lymphocytes (1.2 - 3.4 /CUMM) 1.4 Lymphocytes (20.5 - 51.1 %) 12 L Monocytes (1.7 - 9.3 %) 6 Absolute Monocytes (0.10 - 0.60 /CUMM) 0.4 Eosinophils (0 - 5.0 %) 3 Absolute Eosinophils (0.0 - 0.7 /CUMM) 0.1 Absolute Basophils (0.0 - 0.2 /CUMM) 0 Metamyelocytes (0.0 - 1.0 %) 2 H Platelet Estimate (ADEQUATE) ADEQUATE Normocytic RBCs VERIFIED Normochromic RBCs VERIFIED Polychromasia 1+ Stomatocytes FEW PUBS MCHC (33.0 - 37.0 G/DL) 31.9 L Assessment/Plan Assessment/Plan This 56-year-old male with hx morbid obesity, niddm, atrial flutter, copd, known to the surgical service in the past for a post-auricular likely sebaceous cyst that has been incised multiple times. He is being admitted to the medical service with acute hypercarbic respiratory failure, acute exacerbation of COPD and bronchitis, acute conjunctivitis and this long-standing non-acute right sided post-auricular likely sebaceous cyst which is not infected and does not need to be drained continue current medical management surgery will sign off d/w Consult Acknowledgment - Thank you for your consult request. HEATHER WELLS MDLAND April 05/28/16 1422: General Information and HPI Allergies/Medications Home Med List: Azithromycin 500 MG TABLET 1 TAB PO DAILY copd Digoxin 125 MCG TABLET 1 TAB PO 1700 HEART (Reported) Diltiazem HCl (Diltiazem 24HR ER) 240 MG CAP.ER.24H 1 CAP PO DAILY HEART ( Reported) Furosemide 40 MG TABLET 1 TAB PO BID WATER PILL (Reported) Metformin HCl 500 MG TABLET 1 TAB PO BID DIABETES (Reported) Metoprolol Tartrate 25 MG TABLET 0.5 TAB PO BID HEART (Reported) Potassium Chloride 20 MEQ TAB.ER.PRT 1 TAB PO DAILY SUPPLEMENT (Reported) Warfarin Sodium (Coumadin) 10 MG TABLET 1 TAB PO DAILY BLOOD THINNER ( Reported) Assessment/Plan Consult Acknowledgment - Thank you for your consult request. Attending MD Review Statement Attending Statement Attending MD Statement: examined this patient, discuss w/resident/PA/MEDICAL IMAGING TECHNICIAN Attending Assessment/Plan: Patient has a cystic mass at the angle of his right mandible. It has been drained twice with recurrence. Today the efflux from the cystic mass is mucous, clear, in appearance. 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 Further workup with MRI or CT scan should be performed prior to consideration of resection. I do not recommend any further workup during this hospitalization. He can follow-up with Guanakito Rogers MD (who is our groups' head and neck specialist) as an outpatient. From a surgical perspective, the more pressing issue for him is his incarcerated ventral hernia. There is evidence of skin breakdown. His hernia should be repaired when he is medically suitable for him to undergo general anesthesia with major abdominal surgery. Again, the operation would be best timed after this hospitalization.
--- NOTE | 2016-05-27 16:40 | RADIOLOGY REPORT ---
EXAMINATION: XR CHEST CLINICAL INFORMATION: Hypoxic respiratory failure. Evaluate for any consolidation. COMPARISON: Several prior chest x-rays, most recent of which is dated 05/27/2016. TECHNIQUE: 2 views of the chest were obtained. FINDINGS: Evaluation is limited given the patient's body habitus. The cardiomediastinal silhouette is enlarged, unchanged. Mild tortuosity of the aorta is seen. Lungs bilaterally are symmetrically expanded. Hazy opacities over the lung bases on the frontal view most likely correspond to overlying soft tissues. No definite focal consolidation, effusion or pneumothorax is seen. Mild central vascular congestion is seen. Multilevel mild vertebral endplate spurring is seen. IMPRESSION: Limited exam. No definite focal pneumonia is seen. Mild central vascular congestion is seen.
--- NOTE | 2016-05-27 17:00 | NUR ---
PT HAS A BED 183-00
--- NOTE | 2016-05-27 17:50 | NUR ---
PT REMOVED FROM BIPAP TO EAT DINNER. 02 SATS ON RA DROPPED TO 70%. PT WAS ALERT, TALKING AND EATING WITH NO DIFFICULTY. 02NC STARTED AT 5L WITH IMPROVEMENT TO 85-88.
--- NOTE | 2016-05-27 19:14 | NUR ---
PT ADMITTED TO ROOM # 183-1. ORAL REPORT GIVEN TO DURAN BENAVIDEZ ALL V.S.S. PT READY FOR TRANSFER. CLINICAL STATUS UNCHANGED
[2016-05-27 20:04] VITALS: BP 110/80
--- NOTE | 2016-05-27 23:49 | NUR ---
PT ARRIVE DTO FLOOR AT APPROX 2000. A/O X3, PT ON 60% PARTIAL REBREATHER (EXP WHEEZEM WITH SCATTERED RHONCHI). NON-PRODUCTIVE COUGH. PLACED ON CONT O2 MONITORING (94-97%). DENIES SOB. NSR. SKIN INTACT (ABSCESS BEHIND R EAR). EYES WITH DRAINAGE (ABX EYE GTTS). IV INTACT. DENIES PAIN.
[2016-05-27 23:50] VITALS: BP 114/70
--- NOTE | 2016-05-28 07:44 | PN- Housestaff ---
See Addendum KHRIS HESS 05/28/16 0744: Subjective Follow-up For: COPD EXACERBATION HX OF ATRIAL FIBRILLATION RIGHT POST-AURICULAR SABEOUS CYST. Subjective: Patient seen and examined. He was upset as he is worried that he does not have insurance and money to pay for his hosptal expanses and if he stays here longer, he will loose his job and the flat that he currently lives in. He was explained that he is not stable for discharge from the hospital because of his medical condition. Patient desaturated to 74% on room air and was put back on his rebreather mask. Patient required BIPAP at night. His leukocytosis has improved. He continues to be afebrile. Review of Systems Constitutional: Reports: see HPI. Objective Last 24 Hrs of Vital Signs/I&O Vital Signs Date Time Temp Pulse Resp B/P Pulse O2 O2 Flow FiO2 Ox Delivery Rate 05/28 0910 92 Nasal 10L Cannula 05/28 0837 97.7 74 22 110/68 96 05/28 0800 94 Part 60% ReBreather 05/28 0654 95 92 05/28 0608 72 94 05/28 0301 72 95 05/28 0023 76 89 05/28 0014 76 92 05/28 0000 93 BIPAP 50% 05/27 2350 98.5 70 22 114/70 91 05/27 2306 77 91 05/27 2225 Part 10L ReBreather 05/27 2004 99.3 88 22 110/80 97 Part ReBreather 05/27 1934 99.5 81 20 131/75 97 Non ReBreather 05/27 1659 98.0 82 18 122/70 05/27 1633 96 Venti Mask 60% 05/27 1600 95 Part 60% ReBreather 05/27 1600 98.0 82 20 122/70 95 Part 60% ReBreather 05/27 1537 98.0 82 18 122/70 94 Non ReBreather 05/27 1434 96 05/27 1242 98 96 05/27 1214 85 Nasal 5.0L Cannula 05/27 1202 96.9 95 20 126/66 84 Nasal 4.0L Cannula 05/27 1034 92 Nasal 5.0L Cannula 05/27 1026 95 Nasal 2.0L Cannula 05/27 0945 96.5 106 18 145/96 88 Room Air Intake & Output 05/28 1600 03/09 0800 05/28 0000 Intake Total 200 490 Output Total Balance 200 490 Intake, IV 10 Intake, Oral 200 480 Patient 172.365 kg Weight Physical Exam General Appearance: Alert, Oriented X3, Cooperative, No Acute Distress Skin: No Rashes, No Breakdown HEENT: Atraumatic, Patient has a large sebacious cyst on right posterior auricular area. Neck: Supple Cardiovascular: Normal S1, Normal S2 Lungs: distant breath sounds, no wheezing Abdomen: Soft, No Tenderness, No Hepatospenomegaly Extremities: reddish discoloration of b/l lower extremeties, 1+ pitting edema Current Medications: Current Medications Sig/Denny Start time Last Medication Dose Route Stop Time Status Admin Acetaminophen 650 MG Q6 PRN 05/27 1215 AC PO Albuterol Sulfate 3 ML ONCE ONE 05/27 1145 DC 05/27 INH 05/27 1146 1213 Albuterol Sulfate 3 ML ONCE ONE 05/27 1015 DC 05/27 INH 05/27 1016 1034 Aspirin 0 .STK-MED ONE 05/27 1654 DC PO Aspirin 81 MG DAILY 05/27 1545 AC 05/28 PO 0828 Azithromycin 500 MG DAILY 05/28 1000 AC 05/28 Dextrose/Water 250 ML IV 0830 Azithromycin 500 MG ONCE ONE 05/27 1130 DC 05/27 Dextrose/Water 250 ML IV 05/27 1229 1202 Budesonide/ 2 PUF BID 05/27 1422 AC 05/28 Formoterol Fumarate INH 0829 Cefazolin Sodium 500 MG Q8 05/27 1542 DC 05/28 IV 0635 Ciprofloxacin 2 GTT EVERY 4 HRS/AWAKE 05/27 1600 AC 05/28 OPH 0837 Heparin Sodium 0 .STK-MED ONE 05/27 1416 DC (Porcine) .ROUTE Heparin Sodium 5,000 UNIT Q8 05/27 1400 AC 05/28 (Porcine) SC 0635 Insulin Aspart 0 TIDAC 05/27 1700 AC 05/28 SC 0829 Ipratropium [place] 2.5 ML TID 05/27 2303 AC 05/28 INH 0907 Ipratropium [place] 2.5 ML ONCE ONE 05/27 1015 DC 08 INH /08 1016 1034 Methylprednisolone 40 MG Q12 05/28 1000 AC 05/28 IV 0838 Methylprednisolone 40 MG Q8H 05/27 1900 DC 05/28 IV 0310 Methylprednisolone 40 MG Q8 05/27 1400 DC IV Methylprednisolone 0 .STK-MED ONE 05/27 1111 DC .ROUTE Methylprednisolone 125 MG ONCE ONE 05/27 1015 DC 05/27 IV 05/27 1016 1112 Metoprolol Tartrate 6.25 MG ONCE ONE 05/27 1545 DC 05/27 PO 05/27 1546 1659 Morphine Sulfate 4 MG Q6-PRN PRN 05/27 1215 DC IV Oxycodone/ 1 TAB Q6P PRN 05/27 1215 DC Acetaminophen PO Last 24 Hrs of Lab/Isaias Results Last 24 Hrs of Labs/Mics: Laboratory Tests 05/28/16 0633: Anion Gap 6, Estimated GFR > 60, BUN/Creatinine Ratio 37.0 H, Total Bilirubin 1.0, Direct Bilirubin 0.8 H, AST 19, ALT 40, Alkaline Phosphatase 87, Total Protein 6.4, Albumin 3.2 L, Triglycerides 72, Cholesterol 82, LDL Cholesterol, Calc 47 L, HDL Cholesterol 21 L, Cholesterol/HDL Ratio 4, CBC w Diff NO MAN DIFF REQ, RBC 5.28, MCV 88.6, MCH 28.1, RDW 15.9 H, MPV 8.4, Gran % 91.1 H, Lymphocytes % 5.6 L, Monocytes % 3.1, Eosinophils % 0.1, Basophils % 0.1, Absolute Granulocytes 8.4 H, Absolute Lymphocytes 0.5 L, Absolute Monocytes 0.3, Absolute Eosinophils 0, Absolute Basophils 0, PUBS MCHC 31.7 L 05/27/16 1352: pH 7.40, pCO2 60 *H, pO2 66 L, HCO3 37 H, ABG O2 Sat (Measured) 90.0 L, P-50 (Temp Corrected) N, Carboxyhemoglobin 3.3, O2 Concentration % 40, Temperature 96.9 L, Respiration Rate 26, O2 Delivery Method BIPAP, Vent Mode ST, Expiratory Pressure 6, Inspiratory Pressure 24, Phlebotomy Draw Site RIGHT RADIAL 05/27/16 1155: pH 7.24 *L, pCO2 87 *H, pO2 67 L, HCO3 36 H, ABG O2 Sat (Measured) 85.0 L, Carboxyhemoglobin 4.1, O2 Concentration % 5L, O2 Delivery Method NC, Phlebotomy Draw Site RIGHT RADIAL 05/27/16 1035: Anion Gap 10, Estimated GFR > 60, BUN/Creatinine Ratio 37.0 H, Glucose 131 H, Hemoglobin A1c 7.2 H, Calcium 8.2 L, Total Bilirubin 1.4 H, Direct Bilirubin 0.9 H, AST 25, ALT 40, Alkaline Phosphatase 101, Troponin I < 0.01, Pro-B- Natriuretic Pept 7290 H, Total Protein 6.9, Albumin 3.4 L, Globulin 3.5, Albumin/Globulin Ratio 1.0 L, PT 11.9, INR 1.13, CBC w Diff MAN DIFF ORDERED, RBC 5.61, MCV 88.4, MCH 28.2, RDW 16.5 H, MPV 8.8, Gran % 83.4 H, Lymphocytes % 12.0 L, Monocytes % 3.8, Eosinophils % 0.5, Basophils % 0.3, Absolute Granulocytes 9.8 H, Segmented Neutrophils 75, Band Neutrophils 2, Absolute Lymphocytes 1.4, Lymphocytes 12 L, Monocytes 6, Absolute Monocytes 0.4, Eosinophils 3, Absolute Eosinophils 0.1, Absolute Basophils 0, Metamyelocytes 2 H, Platelet Estimate ADEQUATE, Normocytic RBCs VERIFIED, Normochromic RBCs VERIFIED, Polychromasia 1+, Stomatocytes FEW, PUBS MCHC 31.9 L Microbiology 05/27 120 URINE ROUT: Legionella Antigen - COLB 05/27 120 URINE ROUT: Streptococcus pneumoniae Antigen (M - COLB 05/27 120 LOWER RESP: Respiratory Culture - COLB 05/27 1206 LOWER RESP: Gram Stain - COLB 05/27 120 NASOPHARYN: Influenza Virus A & B Rapid Smear - COLB 05/27 1035 BLOOD: Blood Culture - RECD 05/27 1025 BLOOD: Blood Culture - RECD 05/27 1019 NASOPHARYN: Influenza Virus A & B Rapid Smear - COMP Assessment/Plan Assessment: Patient is 66-year-old male with past medical history significant for COPD, JOHN, atrial flutter, poor medication noncompliance secondary to losing insurance. Is admitted to hospital with acute hypercarbic hypoxic respiratory failure, acute exacerbation of COPD and bronchitis, acute conjunctivitis and sebacious cyst behind right ear. Labs and Vitals as above Imaging done in hospital. Problem List: 1. Acute respiratory failure with hypoxia and hypercapnia 2. COPD exacerbation 3. Leg erythema Pain Ratin Pain Location: none Pain Goal: Pain 4 or less Pain Plan: tylenol prn for pain Tomorrow's Labs & Rationales: none Consulting Request: Consulting Specialty: Pulmonary Disease JUAN M FREEDMAN,SERENITY 05/28/16 1418: Attending MD Review Statement Attending Statement Attending MD Statement: examined this patient, discuss w/resident/PA/ASSESSMENT COORDINATOR, agreed w/resident/PA/ASSESSMENT COORDINATOR, reviewed EMR data (avail), discussed with nursing, discussed with case mgmt, reviewed images Attending Assessment/Plan: Patient wants to sign out AMA. He says that if he doesn't get to his job and he won't be able to afford his rent or his food. I had a very long discussion with the patient. He is a 56-year-old with multiple medical problems including obesity, obstructive sleep apnea, COPD with active tobacco use who is here with acute hypoxemic and hypercapnic respiratory failure. In addition he has diabetes, history of A. fib with rapid ventricular rhythm now rate controlled. He has total capacity for medical decision making and says that he makes too much to be eligible for [employer] insurance and he cannot afford any private insurance even under the affordable care act. He says his last hospitalization caused him to lose his house and he cannot afford that under any circumstances. I've spoken to the bottle caser who is going to talk to social work. We are going to give him meds for a month on the indigent meds program. However we just cannot arrange for oxygen on the indigent meds program and no oxygen company will deliver oxygen. I explained all risks and consequences of signing out AMA particularly respiratory failure and . He understands all the risks and consequences but has to sign out AMA, at this point he says to preserve his job to be able to pay his rent and his food.
[2016-05-28 08:05] LABS: ABSOLUTE BASOPHIL COUNT 0 /CUMM (0.0-0.2); ABSOLUTE EOSINOPHIL COUNT 0 /CUMM (0.0-0.7); ABSOLUTE GRANULOCYTE CT 8.4 /CUMM (1.4-6.5); ABSOLUTE LYMPH COUNT 0.5 /CUMM (1.2-3.4); ABSOLUTE MONOCYTE COUNT 0.3 /CUMM (0.10-0.60); BASOPHIL % 0.1 % (0.0-2.0); EOSINOPHIL % 0.1 % (0-5); HEMATOCRIT 46.8 % (42-52); MEAN CORPUSCULAR HGB 28.1 PG (27.0-31.0); MEAN CORPUSCULAR HGB CONC 31.7 G/DL (33.0-37.0); MEAN CORPUSCULAR VOLUME 88.6 FL (80.0-94.0); MEAN PLATELET VOLUME 8.4 FL (7.4-10.4); PLATELET COUNT 147 /CUMM (130-400); RBC DISTRIBUTION WIDTH 15.9 % (11.5-14.5); RED BLOOD CELL CT 5.28 /CUMM (4.70-6.10); WHITE BLOOD CELL COUNT 9.2 /CUMM (4.8-10.8)
[2016-05-28 08:37] VITALS: BP 110/68
--- NOTE | 2016-05-28 08:52 | PN- Pulmonary ---
Subjective HPI/Critical Care Issues: Patient is awake alert. Shortness of breath is improved. He is comfortable on nasal oxygen. BNP is markedly elevated Objective Current Medications: Current Medications Sig/Denny Start time Last Medication Dose Route Stop Time Status Admin Acetaminophen 650 MG Q6 PRN 05/27 1215 AC PO Albuterol Sulfate 3 ML ONCE ONE 05/27 1145 DC /08 INH 05/27 1146 1213 Albuterol Sulfate 3 ML ONCE ONE 05/27 1015 DC 08 INH 05/27 1016 1034 Aspirin 0 .STK-MED ONE 05/27 1654 DC PO Aspirin 81 MG DAILY 05/27 1545 AC 05/28 PO 0828 Azithromycin 500 MG DAILY 05/28 1000 AC 05/28 Dextrose/Water 250 ML IV 0830 Azithromycin 500 MG ONCE ONE 05/27 1130 DC 05/27 Dextrose/Water 250 ML IV 05/27 1229 1202 Budesonide/ 2 PUF BID 05/27 1422 AC 05/28 Formoterol Fumarate INH 0829 Cefazolin Sodium 500 MG Q8 05/27 1542 AC 05/28 IV 0635 Ciprofloxacin 2 GTT EVERY 4 HRS/AWAKE 05/27 1600 AC 05/28 OPH 0837 Heparin Sodium 0 .STK-MED ONE 05/27 1416 DC (Porcine) .ROUTE Heparin Sodium 5,000 UNIT Q8 05/27 1400 AC 05/28 (Porcine) SC 0635 Insulin Aspart 0 TIDAC 05/27 1700 AC 05/28 SC 0829 Ipratropium [place] 2.5 ML TID 05/27 2303 AC INH Ipratropium [place] 2.5 ML ONCE ONE 05/27 1015 DC /08 INH 08 1016 1034 Methylprednisolone 40 MG Q12 05/28 1000 AC 05/28 IV 0838 Methylprednisolone 40 MG Q8H 05/27 1900 DC 05/28 IV 0310 Methylprednisolone 40 MG Q8 05/27 1400 DC IV Methylprednisolone 0 .STK-MED ONE 05/27 1111 DC .ROUTE Methylprednisolone 125 MG ONCE ONE 05/27 1015 DC 03/08 IV 08 1016 1112 Metoprolol Tartrate 6.25 MG ONCE ONE 05/27 1545 DC 03/08 PO 08 1546 1659 Morphine Sulfate 4 MG Q6-PRN PRN 05/27 1215 DC IV Oxycodone/ 1 TAB Q6P PRN 05/27 1215 DC Acetaminophen PO Vital Signs & I&O Last 24 Hrs of Vitals and I&O: Vital Signs Date Time Temp Pulse Resp B/P Pulse O2 O2 Flow FiO2 Ox Delivery Rate 05/28 0837 97.7 74 22 110/68 96 / 0654 95 92 05/28 0608 72 94 05/28 0301 72 95 05/28 0023 76 89 05/28 0014 76 92 03/ 0000 93 BIPAP 50% 05/27 2350 98.5 70 22 114/70 91 05/27 2306 77 91 05/27 2225 Part 10L ReBreather 05/28 2003 99.3 88 22 110/80 97 Part ReBreather 05/27 1934 99.5 81 20 131/75 97 Non ReBreather 05/27 1659 98.0 82 18 122/70 05/27 1633 96 Venti Mask 60% 05/27 1600 95 Part 60% ReBreather 05/27 1600 98.0 82 20 122/70 95 Part 60% ReBreather 05/27 1537 98.0 82 18 122/70 94 Non ReBreather 05/27 1434 96 08 1242 98 96 08 1214 85 Nasal 5.0L Cannula 05/27 1202 96.9 95 20 126/66 84 Nasal 4.0L Cannula 05/27 1034 92 Nasal 5.0L Cannula 05/27 1026 95 Nasal 2.0L Cannula 05/27 0945 96.5 106 18 145/96 88 Room Air Intake & Output 05/28 1600 05/28 0800 / 0000 Intake Total 200 490 Output Total Balance 200 490 Intake, IV 10 Intake, Oral 200 480 Patient 380 lb Weight Is awake alert comfortable on nasal oxygen. If his chest shows diminished breath sounds there are no wheezes heard cardiac exam shows regular S1 and S2 without murmurs. Impression/Plan Impression/Plan Impression/Plan: 56-year-old gentleman with multiple reasons for chronic hypercarbia including obesity hypoventilation obstructive sleep apnea and COPD actively smoking. baseline PCO2 is likely at 60 based on pH of a probable viral exacerbation with worsening hypercarbia. With elevated BNP be an element of congestive heart failure. His last echo was over a year ago. Recommendations: Recommend nocturnal BiPAP as he likely has significant sleep apnea. Supplemental oxygen to maintain saturations of at least 90%. continue iv steroids and azithromycin patient should have outpatient sleep study counseled regarding the need for smoking cessation. Consider repeat cardiac ultrasound and mild negative fluid balance. If his bicarbonate increases further use of when necessary Diamox would be appropriate. Housestaff to address hyperkalemia
[2016-05-28 09:11] LABS: GRANULOCYTE % 91.1 % (42.2-75.2)
[2016-05-28] MEDS ORDERED: CILOXAN5 ML OPH (11:59)
[2016-05-28] MEDS ORDERED: ASPIRIN81 M4 PO (11:59)
[2016-05-28] MEDS ORDERED: AZITHROMYCIN500 M3 PO (12:03)
--- NOTE | 2016-05-28 12:04 | Patient Discharge Instructions ---
Discharge Instructions General Discharge Information Special Instructions: Please follow up with your PCP and Engagement Quality Consultant upon discharge. Acute Coronary Syndrome Inclusion Criteria At DC or during hospital stay patient has or had the following: ACS DIAGNOSIS No Discharge Core Measures Meds if any: Prescribed or Continued at Discharge Meds if any: NOT Prescribed or Continued at Discharge Congestive Heart Failure Inclusion Criteria At DC or during hospital stay patient has or had the following: CHF DIAGNOSIS No Discharge Core Measures Meds if any: Prescribed or Continued at Discharge Meds if any: NOT Prescribed or Continued at Discharge Cerebrovascular accident Inclusion Criteria At DC or during hospital stay patient has or had the following: CVA/TIA Diagnosis No Discharge Core Measures Meds if any: Prescribed or Continued at Discharge Meds if any: NOT Prescribed or Continued at Discharge Venous thromboembolism Inclusion Criteria VTE Diagnosis No VTE Type NONE VTE Confirmed by (Test) NONE Discharge Core Measures - Per Current guidelines, there needs to be overlap - treatment for the first 5 days of Warfarin therapy. - If discharged on Warfarin prior to 5 days of - overlap therapy, the patient will need to be - assessed for post discharge needs including - *Post discharge parental anticoagulation - *Warfarin and/or parental anticoagulation education - *Follow up date to check INR post discharge At least 5 days overlap therapy as Inpatient No Meds if any: Prescribed or Continued at Discharge Note: Overlap Therapy is Warfarin and Anticoagulant Meds if any: NOT Prescribed or Continued at Discharge
[2016-05-28] MEDS ORDERED: SYMBICORT 16010.2 GM INH (13:23)
[2016-05-28] MEDS ORDERED: COMBIVENT RESPIM4 GM IH (13:26)
[2016-05-28] MEDS ORDERED: PREDNISONE20 M1 PO (13:27)
--- NOTE | 2016-05-28 14:28 | PN- General Surgery ---
Surgical Brief Attending Note Brief Attending Note: Please see my addendum to the surgical PAs note for complete surgical assessment and plan.
--- NOTE | 2016-05-28 15:56 | ECHOCARDIOGRAM REPORT ---
KATHY GEORGE Age: 56 : 1960 Gender: M Exam Date: 05/27/2016 17:04 Exam Location: ER Ht (in): 72 Wt (lb): 290 BSA: 2.64 BP: 122 / 70 Ordering Physician: KHRIS HESS MD Referring Physician: KHRIS HESS MD Technologist: Iesha Spencer RDCS Room Number: ED#18 Indications: AFIB/FLUTTER Rhythm: Sinus Technical Quality: Fair FINDINGS Left Ventricle Normal size left ventricle. No obvious regional wall motion abnormalities. Abnormal septal motion. Normal left ventricular ejection fraction estimated at 55-60%. Left ventricular wall thickness mildly increased. Right Ventricle Mild right ventricular dilatation. Right Atrium Mild right atrial dilatation. Left Atrium Mild left atrial dilatation. Mitral Valve Mitral valve thickened. Trace to mild mitral regurgitation. Aortic Valve Trileaflet aortic valve. Diffuse thickening (sclerosis) of the aortic valve cusps without reduced excursion. No aortic stenosis. No aortic regurgitation. Tricuspid Valve Tricuspid valve not well visualized, grossly normal. Mild-to- moderate tricuspid regurgitation.right ventricular systolic pressure estimated to be elevated at 46 mmHg. Pulmonic Valve Pulmonic valve not well visualized, grossly normal. Trace to mild pulmonic regurgitation. Pericardium No pericardial effusion. Great Vessels Normal size aortic root and proximal ascending aorta. CONCLUSIONS 1. This was a technically difficult examination. 2. Aortic sclerosis is present with no valvular stenosis or insufficiency. 3. Mitral leaflet thickening is present with minimal to mild mitral insufficiency and mild left atrial enlargement. 4. There is no significant pericardial fluid present 5. The left ventricular chamber size is normal with mild concentric hypertrophy and abnormal septal motion but with a normal ejection fraction and no other resting wall motion abnormalities. 6. Mild right heart enlargement is present with dilatation of the IVC and mild to moderate tricuspid insufficiency and minimal to mild pulmonic insufficiency with mild pulmonary hypertension. 7. Lipomatous atrial septal hypertrophy is present Charly Corley M.D. (Electronically Signed) Final Date: 28 May 2016 15:55 MEASUREMENTS (Male / Female) Normal Values 2D ECHO LV Diastolic Diameter PLAX 4.4 cm 4.2 - 5.9 / 3.9 - 5.3 cm LV Systolic Diameter PLAX 2.2 cm 2.1 - 4.0 cm LV Fractional Shortening PLAX 50.0 % 25 - 46 % LV Ejection Fraction 2D Teich 81.5 % IVS Diastolic Thickness 1.4 cm LVPW Diastolic Thickness 1.4 cm LV Relative Wall Thickness 0.6 RV Internal Dim ED PLAX 4.1 cm 1.9 - 3.8 cm LVOT Diameter 2.3 cm Aortic Root Diameter 3.5 cm LA Systolic Diameter LX 4.2 cm 3.0 - 4.0 / 2.7 - 3.8 cm LA Volume 47.0 cm 18 - 58 / 22 - 52 cm Ascending Aorta Diameter 3.5 cm DOPPLER AV Peak Velocity 144.0 cm/s AV Peak Gradient 8.3 mmHg AV Mean Velocity 107.0 cm/s AV Mean Gradient 5.0 mmHg AV Velocity Time Integral 30.0 cm LVOT Peak Velocity 133.0 cm/s LVOT Peak Gradient 7.1 mmHg LVOT Mean Velocity 92.6 cm/s LVOT Mean Gradient 4.0 mmHg LVOT Velocity Time Integral 23.8 cm LVOT Stroke Volume 98.9 cm AV Area Cont Eq vti 3.3 cm AV Area Cont Eq pk 3.8 cm MV Peak Velocity 131.0 cm/s MV Peak Gradient 6.9 mmHg MV Mean Velocity 78.3 cm/s MV Mean Gradient 3.0 mmHg Mitral E Point Velocity 122.0 cm/s Mitral A Point Velocity 80.9 cm/s Mitral E to A Ratio 1.5 MV PHT Velocity 136.0 cm/s MV Deceleration [place] 676.0 cm/s MV Pressure Half Time 60.4 ms MV Area PHT 3.6 cm MV Deceleration Time 217.0 ms TR Peak Velocity 311.0 cm/s TR Peak Gradient 38.7 mmHg Right Atrial Pressure 5.0 mmHg Pulmonary Artery Systolic Pressu 43.7 mmHg Right Ventricular Systolic Press 43.7 mmHg PV Peak Velocity 95.1 cm/s PV Peak Gradient 3.6 mmHg PV Mean Velocity 64.8 cm/s PV Mean Gradient 2.0 mmHg PV Velocity Time Integral 15.4 cm LV E' Lateral Velocity 9.9 cm/s Mitral E to LV E' Lateral Ratio 12.3 LV E' Septal Velocity 5.3 cm/s Mitral E to LV E' Septal Ratio 23.2
--- NOTE | 2016-05-30 10:38 | Discharge Summary ---
Visit Information Visit Dates Admission Date: 05/27/16 Discharge Date: 05/28/16 Hospital Course Course Attending Physician: JUAN M FREEDMAN,SERENITY Traore Primary Care Physician: Dr. Christin Sawant Consulting Request: Consulting Specialty: Pulmonary Disease Hospital Course: Patient is a 56-year-old male with a past medical history of non-insulin- dependent diabetes mellitus, atrial flutter, COPD currently not on home oxygen due to lack of resources, was noncompliant with his medications for the past 9 months due to inability to pay for the medication out of pocket and lack of insurance presented to the ED with chief complaints of progressively worsening productive nonpurulent cough, congestion and difficulty sleeping. Labs and vitals as above Physical exam alert and oriented 3 Chest bilateral coarse breath sounds, decreased air entry Cardiac exam normal S1-S2 Abdomen soft nontender nondistended bowel sounds present Bilateral lower extremity trace bilateral lower extremity edema Imaging done as inpatient Chest x-ray was done which shows no acute disease, cardiac silhouette fluids, mediastinal and pulmonary vasculature is normal. Last Echo done in 11/22/16 CONCLUSIONS 1. This was a technically difficult examination. 2. Aortic sclerosis is present with no valvular stenosis or insufficiency. 3. Mitral leaflet thickening is present with minimal to mild mitral insufficiency and mild left atrial enlargement. 4. There is no significant pericardial fluid present 5. The left ventricular chamber size is normal with mild concentric hypertrophy and abnormal septal motion but with a normal ejection fraction and no other resting wall motion abnormalities. 6. Mild right heart enlargement is present with dilatation of the IVC and mild to moderate tricuspid insufficiency and minimal to mild pulmonic insufficiency with mild pulmonary hypertension. 7. Lipomatous atrial septal hypertrophy is present In the ER he received Solu-Medrol 125 mg IV 1, albuterol inhaler, Atrovent and was started on azithromycin Assessment and plan 1. Acute hypoxemic and hypercarbic respiratory failure Patient was admitted to telemetry floor for continuous pulse oximetry. He was treated for COPD exacerbation. Initially he was on IV steroids Solu-Medrol 40 mg every 8 and was switched to by mouth steroids on discharge 20 mg prednisone for 3 days then stop. His medications were refilled for approximately 30 days as he does not have insurance and did not have resources to fill his medications. Patient was started on azithromycin for possible underlying infectious and inflammation in lungs. Plan is to continue on discharge for a total of 5 days. We will discharge patient on inhalers Symbicort and Combivent to help with shortness of breath. Pulmonary consult service was on board, patient was evaluated by Dr. Ramirez and will follow up with Dr. Ramirez upon discharge Patient required BiPAP overnight and wanted to leave in the morning AGAINST MEDICAL ADVICE as he felt that he is concerned about losing his job and his apartment if he stays back. 2. History of Atrial flutter Patient follows with Dr. Ng as his bank compliance officer. Patient had a history of a flutter however he was off all his meds including diltiazem, Lasix, metoprolol , warfarin due to inability to pay for his medications. Patient was kept off of these medications as inpatient. 3. Ory-xcuatuq-rcybvoetu diabetes mellitus Patient follows with Dr. Sawant as his primary care physician and he was supposed to be on metformin 500 mg twice a day. His HbA1c was 7.3 on 05/27/16 He is advised to continue metformin as an outpatient DVT prophylaxis subcutaneous heparin Patient is DNR/DNI Patient signed out AMA. He said that if he doesn't get to his job and he won't be able to afford his rent or his food. I had a very long discussion with the patient. He is a 56-year-old with multiple medical problems including obesity, obstructive sleep apnea, COPD with active tobacco use who is here with acute hypoxemic and hypercapnic respiratory failure. In addition he has diabetes, history of A. fib with rapid ventricular rhythm now rate controlled. He has total capacity for medical decision making and says that he makes too much to be eligible for [employer] insurance and he cannot afford any private insurance even under the affordable care act. He says his last hospitalization caused him to lose his house and he cannot afford that under any circumstances. I've spoken to the dependency case manager who is going to talk to social work. We are going to give him meds for a month on the indigent meds program. However we just cannot arrange for oxygen on the indigent meds program and no oxygen company will deliver oxygen. I explained all risks and consequences of signing out AMA particularly respiratory failure and . He understands all the risks and consequences but has to sign out AMA, at this point he says to preserve his job to be able to pay his rent and his food. Allergies: Coded Allergies: NO KNOWN ALLERGIES (09/21/13) Disposition Summary Disposition Principal Diagnosis: ACute hypoxic respiratory failure Additional Diagnosis: Diabetes Mellitus Discharge Disposition: left against medical adv Discharge Instructions General Discharge Information Code Status: Do Not Resucitate/Intubat Patient's Diet: Heart healthy, regular consistency Patient's Activity: as tolerated Follow-Up Instructions/Appts: Please follow up with Dr. Ramirez as an outpatient for a free of charge follow up. Medications at Discharge Discharge Medications: Stop taking the following medications: Digoxin (Digoxin) 125 MCG TABLET ORAL 5 PM Diltiazem HCl (Diltiazem 24HR ER) 240 MG CAP.ER.24H ORAL DAILY Furosemide (Furosemide) 40 MG TABLET ORAL TWICE DAILY Metoprolol Tartrate (Metoprolol Tartrate) 25 MG TABLET ORAL TWICE DAILY Potassium Chloride (Potassium Chloride) 20 MEQ TAB.ER.PRT ORAL DAILY Warfarin Sodium (Coumadin) 10 MG TABLET ORAL DAILY Continue taking these medications: Metformin HCl (Metformin HCl) 500 MG TABLET 1 Tablet ORAL TWICE DAILY Comments: Last Taken: NOT GIVEN IN HOSPITAL Time: Start taking the following new medications: Azithromycin (Azithromycin) 500 MG TABLET 1 Tablet ORAL DAILY Qty = 3 No Refills Comments: Last Taken: 05/28/16 Time: 8:30 AM (RECEIVED IV AZITHROMYCIN) Budesonide/Formoterol Fumarate (Symbicort 160-4.5 Mcg Inhaler) 160 MCG-4.5 MCG/ ACTUATION HFA.AER.AD 2 Puff Inhale through mouth TWICE DAILY Qty = 1 No Refills Comments: Last Taken: 05/28/16 Time: 8:30 AM Ipratropium/Albuterol Sulfate (Combivent Respimat Inhal [place]) 20 MCG-100 MCG/ ACTUATION MIST.INHAL 1 Nasal spray INHALATION DAILY Qty = 1 No Refills Comments: Last Taken: NOT GIVEN IN HOSPITAL Time: Prednisone (Prednisone) 20 MG TABLET 2 Tablet ORAL DAILY Qty = 3 No Refills Comments: Last Taken: 05/28/16 Time: 8:30 AM (RECEIVED IV SOLUMEDROL) Copies To: JUAN M FREEDMAN,SERENITY PATTERSON MD,DRAKE Jama; FAITH FREEDMAN,SOURAV NG MD, DRAKE Angelo
== END 2016-05-28 16:30 | disposition left against medical advice (07) | DRG 190 ==
LOC: ENRESERVDT → ENRESERVTM → ERH 09:33 → 1NO 11:56 → ENPENDDIS 11:56 → ERHI 11:56 → EDBEDREQ 13:52 → ERHI 14:22 → 1NO 19:51
PROVIDERS: Internal Medicine; Internal Medicine Infectious Disease; Physician Assistant Medical; ADMIT Hospitalist
DX: J44.1 Chronic obstructive pulmonary disease with (acute) exacerbation (principal); J96.02 Acute respiratory failure with hypercapnia; J96.01 Acute respiratory failure with hypoxia; I48.92 Unspecified atrial flutter; E66.2 Morbid (severe) obesity with alveolar hypoventilation; Z68.43 Body mass index [BMI] 50.0-59.9, adult; F17.200 Nicotine dependence, unspecified, uncomplicated; H10.33 Unspecified acute conjunctivitis, bilateral; E11.9 Type 2 diabetes mellitus without complications; Z79.84 Long term (current) use of oral hypoglycemic drugs; L72.3 Sebaceous cyst; F17.210 Nicotine dependence, cigarettes, uncomplicated
CPT/HCPCS: 1NP; 36415; 82436; 87040; 87070; 87449; 87450; 87804; 87804-59; 93005; 93010; 93306; 96374; 96375; 99291; J0456; J0690; J1644; J2920; J2930; J3490; J7060

== ENCOUNTER 2017-05-03 10:10 | Inpatient (IN) | payer OTHER ==
[~2017-05-03] VITALS: Ht 182.9 cm; Wt 167.8 kg
[~2017-05-03 10:10] MED LIST changes: +ASPIRIN81 M4 PO; +AZITHROMYCIN500 M3 PO; +CILOXAN5 ML OPH; +COMBIVENT RESPIM4 GM IH; +COUMADIN10 M1 PO; +DIGOXIN125 MCG PO; +DILTIAZEM 24HR240 MG PO; +FUROSEMIDE40 M1 PO; +METFORMIN HCL500 M3 PO; +METOPROLOL TART25 M1 PO; +POTASSIUM CHLO20 ME2 PO; +PREDNISONE20 M1 PO; +SYMBICORT 16010.2 GM INH
[2017-05-03 10:39] LABS: ABSOLUTE BASOPHIL COUNT 0.1 /CUMM (0.0-0.2); ABSOLUTE EOSINOPHIL COUNT 0.1 /CUMM (0.0-0.7); ABSOLUTE GRANULOCYTE CT 7.6 /CUMM (1.4-6.5); ABSOLUTE LYMPH COUNT 0.8 /CUMM (1.2-3.4); ABSOLUTE MONOCYTE COUNT 0.6 /CUMM (0.10-0.60); BASOPHIL % 0.8 % (0.0-2.0); EOSINOPHIL % 0.6 % (0-5); HEMATOCRIT 44.8 % (42-52); MEAN CORPUSCULAR HGB 29.3 PG (27.0-31.0); MEAN CORPUSCULAR HGB CONC 32.5 G/DL (33.0-37.0); MEAN CORPUSCULAR VOLUME 90.2 FL (80.0-94.0); MEAN PLATELET VOLUME 7.6 FL (7.4-10.4); PLATELET COUNT 207 /CUMM (130-400); RBC DISTRIBUTION WIDTH 16.4 % (11.5-14.5); RED BLOOD CELL CT 4.97 /CUMM (4.70-6.10); WHITE BLOOD CELL COUNT 9.2 /CUMM (4.8-10.8)
--- NOTE | 2017-05-03 12:17 | ED DYSPNEA/ASTHMA COMPLAINT ---
History of Present Illness General Chief Complaint: Dyspnea (COPD, CHF, Other) Stated Complaint: SOB Source: patient Exam Limitations: no limitations Allergies Coded Allergies: NO KNOWN ALLERGIES (09/21/13) Reconcile Medications Azithromycin 500 MG TABLET 1 TAB PO DAILY copd Budesonide/Formoterol Fumarate (Symbicort 160-4.5 Mcg Inhaler) 160 MCG-4.5 MCG/ ACTUATION HFA.AER.AD 2 PUF INH BID copd Ipratropium/Albuterol Sulfate (Combivent Respimat Inhal [place]) 20 MCG-100 MCG/ ACTUATION MIST.INHAL 1 NS IH DAILY copd Metformin HCl 500 MG TABLET 1 TAB PO BID DIABETES (Reported) Prednisone 20 MG TABLET 2 TAB PO DAILY copd Triage Note: PT TO ED FOR SOB X 10 DAYS, NO ASSOCIATED CP, DIZZINESS, PALPITATIONS, SMOKES TWO PACKS PER DAY X 40 YEARS. OCCASIONAL LIGHT COLORED/CLEAR PHLEGM. Triage Nurses Notes Reviewed? yes Onset: Abrupt Duration: week(s): (1.5), constant, continues in ED, getting worse Timing: recent history Severity: moderate, severe Activities at Onset: activity Prior Episodes/Possible Cause: occasional episodes Modifying Factors: Worsens With: movement. Associated Symptoms: cough, wheezing, weakness HPI: 56-year-old male past medical history of diabetes and a flutter presents for evaluation of cough, congestion and shortness of breath. Patient states symptoms have been present for the past 10 days getting worse. Shortness breath is worse on exertion and improves with rest. He reports dizziness and lightheadedness with exertion. He denies any hemoptysis. He reports cough productive of yellow sputum. He denies any chest pain or lower extremity edema. He recently quit smoking after 40 pack years. He has been using inhalers at home without any improvement. No fever or chills. No nausea vomiting or diarrhea. He is not on any home oxygen. (Galileo Haley) Vital Signs & Intake/Output Vital Signs & Intake/Output Vital Signs Date Time Temp Pulse Resp B/P B/P Pulse O2 O2 Flow FiO2 Mean Ox Delivery Rate 05/03 1248 97 Room Air 05/03 1027 98.2 115 19 130/80 94 Room Air (Dawn FREEDMAN,Serge Matos) Past History Travel History Traveled to [place] past 21 day No Medical History Any Pertinent Medical History? 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 No (Galileo Haely) Review of Systems Review of Systems Constitutional: Reports: no symptoms. EENTM: Reports: no symptoms. Respiratory: Reports: see HPI, cough, short of breath, sputum production, wheezing. Cardiovascular: Reports: no symptoms. GI: Reports: no symptoms. Genitourinary: Reports: no symptoms. Musculoskeletal: Reports: no symptoms. Skin: Reports: no symptoms. Neurological/Psychological: Reports: no symptoms. Hematologic/Endocrine: Reports: no symptoms. Immunologic/Allergic: Reports: no symptoms. All Other Systems: Reviewed and Negative (Galileo Haley) Physical Exam Physical Exam General Appearance: well developed/nourished, no apparent distress, alert, awake , obese Head: atraumatic, normal appearance Eyes: Bilateral: normal appearance, PERRL, EOMI. Ears, Nose, Throat: normal pharynx, normal ENT inspection, hearing grossly normal Neck: normal inspection, supple, full range of motion, NO JVD Respiratory: chest non-tender, no respiratory distress, quiet respiration, decreased breath sounds, rhonchi, wheezing (DIFFUSE ) Cardiovascular: normal peripheral pulses, tachycardia (RATE 106) Peripheral Pulses: 2+ radial (R), 2+ radial (L) Gastrointestinal: normal bowel sounds, soft, non-tender, no organomegaly Extremities: normal inspection, normal range of motion, no edema Neurologic/Psych: no motor/sensory deficits, awake, alert, oriented x 3, normal gait Skin: intact, normal color, warm/dry Lymphatic: no anterior cervical sarah Core Measures ACS in differential dx? No CVA/TIA Diagnosis No Sepsis Present: No Sepsis Focused Exam Completed? No (Galileo Haley) Progress Differential Diagnosis: asthma, AMI, bronchitis, CHF, COPD, pulmonary embolism, pneumonia, pneumothorax, unstable angina Diagnostic Imaging: Viewed by Me: Radiology Read, CT Scan. Discussed w/RAD: Radiology Read, CT Scan. CXR Impression: PATIENT: TJ GEORGE PRESENT AGE : 56 PATIENT ACCOUNT NO: [id number] : 60 LOCATION: [facility] ORDERING PHYSICIAN: Serge Seymour MD SERVICE DATE: 05/03/17 EXAM TYPE: RAD - XRY-CHEST XRAY, TWO VIEWS EXAMINATION: XR CHEST CLINICAL INFORMATION: Cough. Shortness of breath. COMPARISON: Multiple prior chest x-rays with the most recent chest x-ray dated 05/27/2016. TECHNIQUE: 2 views of the chest were obtained. FINDINGS: The evaluation is somewhat limited by patient's body habitus. There is increased haziness in the bilateral lower lung zones, right greater than left. On the left, it is probably related to overlying soft tissues. On the right, the haziness is at least partly related to overlying soft tissue, however, underlying infiltrate cannot be completely excluded. The lungs are mildly hyperinflated. No pleural effusions, pulmonary edema or pneumothorax. Lower cervical fusion hardware is partially seen. Mild degenerative changes in the spine. Cardiomediastinal silhouette is normal. IMPRESSION: Somewhat limited evaluation. Right lung base opacities representing infectious infiltrates cannot be excluded. DICTATED BY: Billie Aaron MD DATE/TIME DICTATED:05/03/171236 SUPERVISOR LOADING:GARFIELD DATE/TIME TRANSCRIBED:05/03/171236 CONFIDENTIAL, DO NOT COPY WITHOUT APPROPRIATE AUTHORIZATION. <Electronically signed in Other Vendor System> SIGNED BY: Billie Aaron MD 05/03/17 1321 Initial ED EKG: normal sinus rhythm, SINUS TACH RATE 120, NONSPECIFIC IVCD WITH LAD (Mauro OSMAN,Galileo) Plan of Care: Orders Procedure Date/time Status Regular Diet 05/03 D Active Misc Message 05/03 1433 Active ED Holding Orders 05/03 1433 Active Admit to inpatient 05/03 1433 Active Vital Signs 05/03 1433 Active Code Status 05/03 1433 Active RAPID VIRAL INFLUENZA A 05/[address] CHEST WO IV CONTRAST 05/03 1322 Active Add-on Test (ER Only) 05/03 1206 Active D-DIMER 05/03 1031 Complete TROPONIN LEVEL 05/03 1019 Complete COMPREHENSIVE METABOLIC PANEL 05/03 1019 Complete CBC WITHOUT DIFFERENTIAL 05/03 1019 Complete EKG 05/03 1012 Active Current Medications Sig/Denny Start time Last Medication Dose Stop Time Status Admin Azithromycin 500 MG ONCE ONE 05/03 1430 AC (Zithromax) 05/03 1529 Dextrose/Water 250 ML (D5W) Laboratory Tests 05/03/17 1031: Anion Gap 9, Estimated GFR > 60, BUN/Creatinine Ratio 23.3, Glucose 112 H, Calcium 8.9, Total Bilirubin 1.0, AST 23, ALT 37, Alkaline Phosphatase 93, Troponin I < 0.01, Total Protein 7.2, Albumin 3.8, Globulin 3.4, Albumin/ Globulin Ratio 1.1, D-Dimer High Sensitivty < 200, CBC w Diff NO MAN DIFF REQ, RBC 4.97, MCV 90.2, MCH 29.3, MCHC 32.5 L, RDW 16.4 H, MPV 7.6, Gran % 83.0 H , Lymphocytes % 9.0 L, Monocytes % 6.6, Eosinophils % 0.6, Basophils % 0.8, Absolute Granulocytes 7.6 H, Absolute Lymphocytes 0.8 L, Absolute Monocytes 0.6, Absolute Eosinophils 0.1, Absolute Basophils 0.1 Microbiology 05/03 1334 NASOPHARYN: Influenza Virus A & B Rapid Smear - COMP Patient seen and evaluated. he is a history of COPD and was recently admitted here for an exacerbation. He has diffuse wheezing and rhonchi auscultated bilaterally. He was treated with DuoNeb's here as well as prednisone. Bloodwork is within normal limits including a negative d-dimer negative troponin. Chest x-ray shows a possible pneumonia. This will be confirmed with CT scan. Patient will be started on antibioticS for community-acquired pneumonia. He is afebrile negative white blood cell count. Patient was intubated in the emergency department and desaturated to 86% on room air. He becomes is short of breath. He'll require admission for COPD exacerbation and pneumonia. He will need serial labs, serial chest x-rays, oxygen supplementation, IV steroids IV antibiotics pulmonology consult and monitoring of vital signs. Case discussed with Dr. Seymour he agrees. (Mauro OSMAN,Galileo) Comments: 05/03/2017 2:14:05 PM although Tj is comfortable while seated and not exerting himself, he gets very dyspneic with tried to ambulate. I suspect undiagnosed COPD given his diminished sounds and history of cigarette smoking. (Dawn FREEDMAN,Serge Matos) Departure Departure Disposition: STILL A PATIENT Condition: Stable Clinical Impression Primary Impression: COPD exacerbation Secondary Impressions: Pneumonia Qualifiers: Pneumonia type: due to unspecified organism Laterality: unspecified laterality Lung location: unspecified part of lung Qualified Code: J18.9 - Pneumonia, unspecified organism Referrals: Patient Has No Primary Care Dr (PCP/Family) Departure Forms: Customer Survey General Discharge Information Admission Note Spoke With: Tj Steinbegr MD Documentation of Exam: Documentation of any treatments & extenuating circumstances including Concerns Regarding Discharge (functional status, medication knowledge or non-compliance, living conditions, etc.) that warrant an admission rather than observation: [IV steroids, IV antibiotics, oxygen supplementation, pulmonology consult, serial labs, serial chest x-rays, DuoNeb's, monitoring of vital signs] (Galileo Haley) PA/GREENBELT Co-Sign Statement Statement: ED Attending supervision documentation- [x] I saw and evaluated the patient. I have also reviewed all the pertinent lab results and diagnostic results. I agree with the findings and the plan of care as documented in the PA's/GREENBELT's documentation. Patient presents for evaluation of worsening dyspnea. Physical examination reveals diminished breath sounds bilaterally (patient has a long history of cigarette smoking but quit about 2-3 weeks ago). [] I have reviewed the ED Record and agree with the PA's/GREENBELT's documentation. [] Additions or exceptions (if any) to the PAs/GREENBELT's note and plan are summarized below: [] (Dawn FREEDMAN,Serge Matos) Critical Care Note Critical Care Note Critical Care Time: non-applicable (Galileo Haley)
--- NOTE | 2017-05-03 13:21 | RADIOLOGY REPORT ---
EXAMINATION: XR CHEST CLINICAL INFORMATION: Cough. Shortness of breath. COMPARISON: Multiple prior chest x-rays with the most recent chest x-ray dated 05/27/2016. TECHNIQUE: 2 views of the chest were obtained. FINDINGS: The evaluation is somewhat limited by patient's body habitus. There is increased haziness in the bilateral lower lung zones, right greater than left. On the left, it is probably related to overlying soft tissues. On the right, the haziness is at least partly related to overlying soft tissue, however, underlying infiltrate cannot be completely excluded. The lungs are mildly hyperinflated. No pleural effusions, pulmonary edema or pneumothorax. Lower cervical fusion hardware is partially seen. Mild degenerative changes in the spine. Cardiomediastinal silhouette is normal. IMPRESSION: Somewhat limited evaluation. Right lung base opacities representing infectious infiltrates cannot be excluded.
--- NOTE | 2017-05-03 14:38 | History & Physical ---
[place] 05/03/17 1437: General Information and HPI MD Statement: I have seen and personally examined KATHY GEORGE and documented this H&P. The patient is a 56 year old M who presented with a patient stated chief complaint of progressive worsening short of breath with productive cough. []. Source of Information: patient, old records Exam Limitations: no limitations History of Present Illness: 56 YO M former smoker (quit 3 weeks back, 1 pack/d for 40 yrs) with PMH of COPD not on home O2, JOHN not using CPAP any more due to insurance problem, proxysmal A.fib not on anticoagulation and DM on metformin presented to ED with progressively worsening shortness of breath and productive cough for last 10 days. Patient reported that he was in usual state of health 10 days back when he started to have progressively worsening shortness of breath. According to patient before 10 days he become short of breath on moderate exertion but for last 10 days he becomes short of breath even with mild exertion and now even at rest. Patient also reported having cough with sputum that's usually mucus or yellow in color but nonbloody and [id number]-yqslpodh. Patient denied any chest pain, palpitations, headache, dizziness, fever, chills, abdominal pain, sick contacts, constipation, diarrhea and dysuria. Patient reported that he was diagnosed with COPD 1 year back and since then he is using inhalers but for last couple of days he is not able to use inhaler because of insurance. He also reported that he was diagnosed with obstructive sleep apnea but due to insurance problem he is not able to use CPAP machine. Last time patient was admitted in the [facility] with acute hypoxic respiratory failure due to COPD exacerbation in May 2016. Last echocardiogram was done in May 2016 that showing ejection fraction 55-60% with right ventricle systolic pressure 46 mmHg and mild pulmonary hypertension. ED course: Vitals: Temperature 98.2, pulse 115, respiratory rate 19, blood pressure 130/80, oxygen saturation 94% on room air. Labs: WBC count 9.2, hemoglobin 14.5, hematocrit 44.8, platelet count 207, sodium 137, potassium 4.4, BUN 21, creatinine 0.9, BUN/creatinine ratio 23.3, glucose 112, calcium 8.9, AST 22, ALT 37, troponin less than 0.01 Allergies/Medications Allergies: Coded Allergies: NO KNOWN ALLERGIES (09/21/13) Home Med list Azithromycin 500 MG TABLET 1 TAB PO DAILY copd Budesonide/Formoterol Fumarate (Symbicort 160-4.5 Mcg Inhaler) 160 MCG-4.5 MCG/ ACTUATION HFA.AER.AD 2 PUF INH BID copd Ipratropium/Albuterol Sulfate (Combivent Respimat Inhal [place]) 20 MCG-100 MCG/ ACTUATION MIST.INHAL 1 NS IH DAILY copd Metformin HCl 500 MG TABLET 1 TAB PO BID DIABETES (Reported) Prednisone 20 MG TABLET 2 TAB PO DAILY copd Past History Travel History Traveled to [place] past 21 day No Medical History Neurological: NONE EENT: NONE Cardiovascular: aflutter Respiratory: COPD Gastrointestinal: NONE Hepatic: NONE Renal: NONE Musculoskeletal: NONE Psychiatric: NONE Endocrine: diabetes Blood Disorders: NONE Cancer(s): NONE 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 self Services at Home: None ETOH Use: denies use Illicit Drug Use: denies illicit drug use Review of Systems Review of Systems Constitutional: Reports: no symptoms. EENTM: Reports: no symptoms. Cardiovascular: Reports: no symptoms. Respiratory: Reports: cough, short of breath. GI: Reports: no symptoms. Genitourinary: Reports: no symptoms. Musculoskeletal: Reports: see HPI. Neurological/Psychological: Reports: no symptoms. Exam & Diagnostic Data Physical Exam General Appearance Alert, Oriented X3, Cooperative Skin Temp/Moisture Exam: Warm/Dry Sepsis Skin Exam (color): Normal for Ethnicity HEENT Atraumatic, PERRLA, EOMI Neck Supple Cardiovascular Normal S1, Normal S2 Lungs B/L wheezing inspiratory, Decreased breath sounds Abdomen Soft, No Tenderness Neurological Normal Speech, Strength at 5/5 X4 Ext, Normal Tone, Sensation Intact Extremities B/L pedqal edema, Chronic venous changes, Right big toe diabetic ulcer with scab Assessment/Plan Assessment: 56 YO M former smoker (quit 3 weeks back, 1 pack/d for 40 yrs) with PMH of COPD not on home O2, JOHN not using CPAP any more due to insurance problem, proxysmal A.fib not on anticoagulation and DM on metformin presented to ED with progressively worsening shortness of breath and productive cough for last 10 days. We will admit the patient on general medicine floor to treat for acute COPD exacerbation. Acute hypoxic respiratory failure due to COPD exacerbation: -Probably due to noncompliance to medication due to unavailability. -Patient was desaturating to 84% without O2. -Oxygen supplementation as needed to keep saturation above 92%. -IV Solu-Medrol 40 mg every 8 hourly -IV azithromycin -TRC nebulization -Muconix to bring up sputum. -Sputum cultures -Pulmonology consult -His chest x-ray showing right lower lobe and new infiltrations cannot be ruled out that's why CT scan chest was done that showed 17 mm rounded opacity in left lower lobe largest with several small patchy opacities. History of JOHN: -CPAP at night time. History of diabetes: -Accu-Cheks -Insulin NovoLog according to sliding scale. History of paroxysmal A. fib/flutter: -According to patient he is not on any anticoagulation or any rate control medications as his director supply recommended not to take any. History of right big toe chronic diabetic ulcer; -Wound care -Podiatry consult DVT prophylaxis: Mechanical and subcutaneous heparin CODE STATUS; DNR/DNI As Ranked By This Provider Problem List: 1. COPD exacerbation Core Measures/Misc (12/06) Acute Coronary Syndrome ACS Diagnosis: No Congestive Heart Failure Congestive Heart Failure Diagnosis No Cerebrovascular Accident CVA/TIA Diagnosis: No VTE (View Protocol) VTE Risk Factors Age>40 No Mechanical VTE Prophylaxis d/t N/A MechProphylax Ordered No VTE Pharm Prophylaxis d/t NA PharmProphylax ordered Sepsis (View protocol) Sepsis Present: No Celine FREEDMAN,Isinil 05/03/17 1614: Exam & Diagnostic Data Last 24 Hrs of Vital Signs/I&O Vital Signs Date Time Temp Pulse Resp B/P B/P Pulse O2 O2 Flow FiO2 Mean Ox Delivery Rate 05/03 1854 Nasal 4.0L Cannula 05/03 1731 98.4 113 22 138/74 95 05/03 1730 94 Nasal 4.0L Cannula 05/03 1609 98.3 115 24 130/78 93 Nasal 4.0L Cannula 05/03 1248 97 Room Air 05/03 1027 98.2 115 19 130/80 94 Room Air Intake & Output 05/03 1600 05/03 0800 02/12 0000 Intake Total Output Total Balance Patient 172.365 kg Weight Weight Reported by Patient Measurement Method Resident Review Statement Resident Statement: examined this patient, discussed with culinary internship, agreed with culinary internship Other Findings: 56-year-old male who presented complaining of 10 days of exertional dyspnea and cough productive of yellow sputum. The patient was diagnosed with COPD around a year ago, since then he's been using albuterol inhaler as needed. For the past week albuterol inhaler was not helping and his dyspnea worsened. The patient denies chest pain, palpitation, fever, chills, or green sputum. The patient denies any sick contacts, or recent travel. The patient has no insurance for which he is not following with any doctors. The patient has hx of JOHN he was on CPAP but stopped using it after he lost his insurance. The patient reported that he had a history of palpitation and he was diagnosed with atrial fibrillation, few years ago his director supply stopped his anticoagulation after Holter monitor was found to be negative for A. fib. Assessment and plan This is 56-year-old male presented with 10 days of worsening dyspnea and cough, wheezing with significant decreased air entry all over lung bilaterally. This is acute hypoxic respiratory failure (84% on RA) which most likely 2/2 COPD exacerbation mixed with JOHN, and possible obesity hypoventilation syndrome. X- ray shows right lung base opacity. CT chest showed 17 mm rounded opacity within the left lower lobe which is suggestive of atelectasis, infection or inflammation. no leukocytosis or fever which makes pneumonia less likely, If worsening or no improvement of symptoms we may consider treating for CAP. RFTs and LFTs are WNL. BNP 1880 and bilateral +1 lower extremity edema. HR was found to be in 110s (will check TSH), however heart involvement is less likely given - negative chest xray for effusion and low BNP. #Acute hypoxic respiratory failure most likely secondary to COPD exacerbation * We will admit to general medicine floor * We will start on IV Solu-Medrol 40 mg every 8 hours * We'll start patient on azithromycin 500 mg daily * TRC/nebs [id number] * Oxygen supply targeting oxygen saturation above 92% * Sputum culture # CT chest showed 17 mm rounded opacity: * If worsening or no improvement of symptoms we may consider treating CAP, pt is on azithromycin we may just add ceftriaxone. * We repeat CT after treatment to further address this opacification. * We will consult pulmonology, we will instruct patient to follow with pulmonology post discharge. #JOHN * CPAP at night #Iun-yicvrmq-nyhvuqecj T2DM, peripheral neuropathy, and right 1st toe ulcer. * Hold metformin * Start insulin sliding scale * Diabetic diet * A quick check 3 times a day and at bedtime * We will consult podiatry for diabetic foot ulcer * We will start patient on gabapentin 100 mg TID -DVT PPx: ALPS and pharmacological -Diabetic diet -DNR/DNI Attending MD Review Statement Attending Statement Attending MD Statement: examined this patient, discuss w/resident/PA/ASSOCIATE PROFESSOR OF ENGINEERING, agreed w/resident/PA/ASSOCIATE PROFESSOR OF ENGINEERING, discussed with family, reviewed EMR data (avail), discussed with nursing, discussed with case mgmt, reviewed images, amended to note Attending Assessment/Plan: 56 YO M former smoker (quit 3 weeks back, 1 pack/d for 40 yrs) with PMH of COPD not on home O2, JOHN not using CPAP any more due to insurance problem, proxysmal A.fib not on anticoagulation and DM on metformin presented to ED with progressively worsening shortness of breath and productive cough for past few days, denies fever, no sick contacts, b/l +1-2 pedal edema, diffuse wheezing+, decreased b/l air entry. Chronic Ulcer + on right toe at admission. Hypoxic on arrival. Labs unremarkable , bnp [address] chest 17 mm rounded opacity in left lower lobe largest with several small patchy opacities. ASSESSMENT AND PLAN Patient admitted to in patient medical services for acute hypoxic respiratory failure with possible COPD exacerbation and underlying abnormal chest CT scan concerning for malignancy. Patient start on iv steroids, iv abx, oxygen supp, TRCs, sputum c/s, Pulmonary consult. RVSP 46 mm hg on ECHO in 05/2016. Poditary consult for chronic toe ulcer, RISS and titrate insulin as needed, resume home meds, gi/dvt prophylaxis. code status.
--- NOTE | 2017-05-03 15:20 | CT SCAN REPORT ---
EXAMINATION: CT CHEST WITHOUT CONTRAST CLINICAL INFORMATION: Cough, shortness of breath. COMPARISON: Same day chest radiographs. TECHNIQUE: Contiguous axial thin section helical images of the chest were performed without contrast. The data set was reformatted in the coronal and sagittal planes and reviewed on an independent workstation. DLP: 983 mGy-cm. FINDINGS: The heart is of normal size. There is no pericardial effusion. There is neither mediastinal, hilar nor axillary lymphadenopathy. There are no chest wall masses. Review of lung windows demonstrates that there are neither pleural effusions nor pneumothoraces. There are no consolidations. There is mild bilateral bronchial wall thickening, predominantly within the right lung. There is atelectasis within the right middle lobe. There are several small patchy opacities within the left lower lobe. The largest is present within the posterior basal segment on image 1.7 cm. This largest focus cannot be excluded as representing a mass lesion. Additional smaller opacities have mild surrounding groundglass opacification. Images of the upper abdomen demonstrate that the liver is of normal size and attenuation without focal lesions. Normal adrenal glands are identified. Bone windows: Neither sclerotic nor lytic bone lesions are identified. Partially visualized is cervical spine fusion hardware. IMPRESSION: Mild right greater than left bilateral bronchial wall thickening. 17 mm rounded opacity within the posterior basal segment of the left lower lobe. It is uncertain as to whether this corresponds to a focus of infection or inflammation or represents an underlying mass lesion. There are additional ill-defined areas of opacification present likely chain sales representative of atelectasis, infection or inflammation. Consider correlation with a short-term follow-up chest CT following treatment and/or resolution of symptoms to assure resolution of this dominant appearance. Various management parameters for solitary pulmonary nodules are in the literature. According to the Fleischner Society, recommendations for pulmonary nodules are as follows: Nodule size < or = to 4 mm in LOW RISK PATIENTS: No follow up needed. Nodule size < or = to 4 mm in HIGH RISK PATIENTS: Follow up CT at 12 months; if unchanged, no further follow up. Nodule size > 4-6 mm in LOW RISK PATIENTS: Follow up CT at 12 months; if unchanged, no further follow up. Nodule size > 4-6 mm in HIGH RISK PATIENTS: Initial follow up CT at 6-12 months, then at 18-24 months if no change. Nodule size > 6-8 mm in LOW RISK PATIENTS: Initial follow up CT at 6-12 months, then at 18-24 months if no change. Nodule size > 6-8 mm in HIGH RISK PATIENTS: Initial follow up CT at 3-6 months, then 9-12 months and 24 months if no change. Nodule size > 8 mm in LOW RISK PATIENTS: Follow up CT at around 3, 9, and 24 months, dynamic contrast-enhanced CT, PET, and/or biopsy. Nodule size > 8 mm in HIGH RISK PATIENTS: Same as for low-risk patients.
[2017-05-03 17:31] VITALS: BP 138/74
[2017-05-03 22:08] VITALS: BP 130/80
[2017-05-04 06:08] VITALS: BP 132/80
--- NOTE | 2017-05-04 07:55 | PN- Housestaff ---
See Addendum Subjective Follow-up For: COPD, malignancy? Subjective: Admitted last night for COPD exacerbation. Breathing has much improved. Has not been using CPAP due to work/insurance issues. No CP. Toe feels fine, no fever or chills. Review of Systems Constitutional: Reports: no symptoms. EENTM: Reports: no symptoms. Cardiovascular: Reports: no symptoms. Respiratory: Reports: see HPI. Gastrointestinal: Reports: no symptoms. Genitourinary: Reports: no symptoms. Musculoskeletal: Reports: no symptoms. Skin: Reports: see HPI. Neurological/Psychological: Reports: no symptoms. Hematologic/Endocrine: Reports: no symptoms. Immunologic/Allergic: Reports: no symptoms. Objective Last 24 Hrs of Vital Signs/I&O Vital Signs Date Time Temp Pulse Resp B/P B/P Pulse O2 O2 Flow FiO2 Mean Ox Delivery Rate 05/04 0608 97.6 112 20 132/80 90 05/04 0227 110 90 05/04 0014 100 86 05/04 0000 95 CPAP 05/03 2252 110 91 05/03 2208 98.2 74 20 130/80 95 05/03 1854 Nasal 4.0L Cannula 05/03 1731 98.4 113 22 138/74 95 05/03 1730 94 Nasal 4.0L Cannula 05/03 1609 98.3 115 24 130/78 93 Nasal 4.0L Cannula 05/03 1248 97 Room Air 05/03 1027 98.2 115 19 130/80 94 Room Air Intake & Output 05/04 0800 05/04 0000 05/03 1600 Intake Total Output Total Balance Patient 167.829 kg 172.365 kg Weight Weight Reported by Patient Reported by Patient Measurement Method Physical Exam General Appearance: Alert, Oriented X3, Cooperative, No Acute Distress Cardiovascular: Regular Rate, Normal S1, Normal S2 Lungs: Clear to Auscultation Abdomen: obese with large reducible umbilical hernia. Neurological: Normal Tone Extremities: very dry skin. Right big toe with erosion and dried blood, no erythema, discharge, or warmth. Current Medications: Current Medications Sig/Denny Start time Last Medication Dose Route Stop Time Status Admin Albuterol Sulfate 3 ML TID 05/03 2200 AC 05/03 INH 1840 Albuterol Sulfate 3 ML Q4P PRN 05/03 1900 AC INH Albuterol Sulfate 3 ML ONCE ONE 05/03 1215 DC 05/03 INH 05/03 1216 1226 Azithromycin 250 MG DAILY 05/04 1000 AC PO Azithromycin 500 MG ONCE ONE 05/03 1430 DC 05/03 Dextrose/Water 250 ML IV 05/03 1529 1615 Ceftriaxone Sodium 0 .STK-MED ONE 05/03 1559 DC .ROUTE Ceftriaxone Sodium 1,000 MG ONCE ONE 05/03 1430 DC 05/03 IV 05/03 1431 1530 Enoxaparin Sodium 40 MG DAILY 05/04 1000 AC SC Gabapentin 100 MG Q8H 05/04 1000 AC PO Gabapentin 100 MG Q8 05/03 2200 DC 05/04 PO 0210 Insulin Aspart 0 TIDAC 05/04 0800 AC SC Ipratropium Gypsum 2.5 ML TID 05/03 2200 AC 05/03 INH 1840 Ipratropium Gypsum 2.5 ML ONCE ONE 05/03 1900 DC INH 05/03 1901 Ipratropium Gypsum 2.5 ML ONCE ONE 05/03 1215 DC 05/03 INH 05/03 1216 1226 Methylprednisolone 40 MG Q8 05/03 1731 AC 05/04 IV 0526 Prednisone 0 .STK-MED ONE 05/03 1244 DC PO Prednisone 60 MG ONCE ONE 05/03 1215 DC 05/03 PO 05/03 1216 1247 Last 24 Hrs of Lab/Isaias Results Last 24 Hrs of Labs/Mics: Laboratory Tests 05/04/17 0740: Sodium Pending, Potassium Pending, Chloride Pending, Carbon Dioxide Pending, Anion Gap Pending, BUN Pending, Creatinine Pending, BUN/Creatinine Ratio Pending , CBC w Diff Pending, WBC Pending, RBC Pending, Hgb Pending, Hct Pending, MCV Pending, MCH Pending, MCHC Pending, RDW Pending, Plt Count Pending, MPV Pending 05/03/17 1031: Anion Gap 9, Estimated GFR > 60, BUN/Creatinine Ratio 23.3, Glucose 112 H, Hemoglobin A1c Pending, Calcium 8.9, Total Bilirubin 1.0, AST 23, ALT 37, Alkaline Phosphatase 93, Troponin I < 0.01, Xli-T-Fixfnocbxmp Pept 1880 H, Total Protein 7.2, Albumin 3.8, Globulin 3.4, Albumin/Globulin Ratio 1.1, TSH 2.680, D-Dimer High Sensitivty < 200, CBC w Diff NO MAN DIFF REQ, RBC 4.97, MCV 90.2, MCH 29.3, MCHC 32.5 L, RDW 16.4 H, MPV 7.6, Gran % 83.0 H, Lymphocytes % 9.0 L, Monocytes % 6.6, Eosinophils % 0.6, Basophils % 0.8, Absolute Granulocytes 7.6 H, Absolute Lymphocytes 0.8 L, Absolute Monocytes 0.6, Absolute Eosinophils 0.1, Absolute Basophils 0.1 Microbiology 05/03 1727 LOWER RESP: Respiratory Culture - COLB 05/03 172 LOWER RESP: Gram Stain - COLB 05/03 1334 NASOPHARYN: Influenza Virus A & B Rapid Smear - COMP Assessment/Plan Assessment: 56 YO M former smoker (quit 3 weeks back, 1 pack/d for 40 yrs) with PMH of COPD not on home O2, JOHN not using CPAP any more due to insurance problem, proxysmal A.fib not on anticoagulation and DM on metformin presented to ED with progressively worsening shortness of breath and productive cough for last 10 days. Problem list: 1. Acute hypoxic respiratory failure secondary to COPD exacerbation 2. Incidental finding on CT 3. Right great toe ulcer #Acute hypoxic respiratory failure secondary to COPD exacerbation: Patient is a former smoker but not on home oxygen. He has obesity and JOHN but does not use CPAP at home due to insurance issues. His breathing has much improved since last night. -Pulmonology consult -Methylprednisolone 40 mg every 8 hours -Azithromycin -TRC nebs -Guaifenesin -Follow cultures #Incidental finding on CT: CT imaging shows 17 mm rounded opacity within the posterior basal segment of the left lower lobe. He may need follow-up in 3 months and/or biopsy. He is at high risk for malignancy given his smoking history. -Appreciate pulmonology recommendations #Right great toe ulcer: No active bleeding or signs of infection. -Podiatry consult #Chronic medical problems: Continue home medications DVT prophylaxis with enoxaparin Consistent carbohydrate 2 DNR/DNI Problem List: 1. COPD exacerbation Pain Ratin Pain Location: no ain Pain Goal: Remain pain free Pain Plan: ssee /ap Tomorrow's Labs & Rationales: none
[2017-05-04 08:42] LABS: ABSOLUTE BASOPHIL COUNT 0 /CUMM (0.0-0.2); ABSOLUTE EOSINOPHIL COUNT 0 /CUMM (0.0-0.7); ABSOLUTE GRANULOCYTE CT 7.6 /CUMM (1.4-6.5); ABSOLUTE LYMPH COUNT 0.6 /CUMM (1.2-3.4); ABSOLUTE MONOCYTE COUNT 0.1 /CUMM (0.10-0.60); BASOPHIL % 0.3 % (0.0-2.0); EOSINOPHIL % 0 % (0-5); HEMATOCRIT 46.6 % (42-52); MEAN CORPUSCULAR HGB 29.2 PG (27.0-31.0); MEAN CORPUSCULAR HGB CONC 32.4 G/DL (33.0-37.0); MEAN CORPUSCULAR VOLUME 90.2 FL (80.0-94.0); MEAN PLATELET VOLUME 8.2 FL (7.4-10.4); PLATELET COUNT 214 /CUMM (130-400); RBC DISTRIBUTION WIDTH 16.3 % (11.5-14.5); RED BLOOD CELL CT 5.17 /CUMM (4.70-6.10); WHITE BLOOD CELL COUNT 8.4 /CUMM (4.8-10.8)
[2017-05-04 09:33] LABS: GRANULOCYTE % 90.8 % (42.2-75.2)
--- NOTE | 2017-05-04 10:16 | Cons- Pulmonary ---
General Information and HPI Consulting Request Date of Consult: 05/04/17 Requested By: Hodan Reason for Consult: Acute hypoxic respiratory failure History of Present Illness: This 56-year-old morbid obesity chronic hypercapnic history failure obstructive sleep apnea without CPAP admitted with increasing shortness of breath and acute hypoxic history failure. Patient was previously hospitalized proximally year ago for acute hypercapnic respiratory failure requiring BiPAP. Because of insurance issues his BiPAP was weak called. He comes in today with increasing shortness of breath hypoxia and cough productive of discolored sputum Allergies/Medications Allergies: Coded Allergies: NO KNOWN ALLERGIES (09/21/13) Home Med List: Azithromycin 500 MG TABLET 1 TAB PO DAILY copd Budesonide/Formoterol Fumarate (Symbicort 160-4.5 Mcg Inhaler) 160 MCG-4.5 MCG/ ACTUATION HFA.AER.AD 2 PUF INH BID copd Ipratropium/Albuterol Sulfate (Combivent Respimat Inhal [place]) 20 MCG-100 MCG/ ACTUATION MIST.INHAL 1 NS IH DAILY copd Metformin HCl 500 MG TABLET 1 TAB PO BID DIABETES (Reported) Prednisone 20 MG TABLET 2 TAB PO DAILY copd Review of Systems Review of Systems Constitutional: Denies: chills, fever. Cardiovascular: Reports: peripheral edema. Denies: chest pain. Respiratory: Reports: cough, short of breath, sputum production. Denies: hemoptysis. GI: Denies: abdominal pain, diarrhea, melena. 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 self Services at Home: None Smoking Status: Current Everyday Smoker ETOH Use: denies use Illicit Drug Use: denies illicit drug use Exam & Diagnostic Data Last 24 Hrs of Vital Signs/I&O Vital Signs Date Time Temp Pulse Resp B/P B/P Pulse O2 O2 Flow FiO2 Mean Ox Delivery Rate 05/04 0815 91 Nasal 4.0L Cannula 05/04 0608 97.6 112 20 132/80 90 05/04 0227 110 90 05/04 0014 100 86 05/04 0000 95 CPAP 05/03 2252 110 91 05/03 2208 98.2 74 20 130/80 95 05/03 1854 Nasal 4.0L Cannula 05/03 1731 98.4 113 22 138/74 95 05/03 1730 94 Nasal 4.0L Cannula 05/03 1609 98.3 115 24 130/78 93 Nasal 4.0L Cannula 05/03 1248 97 Room Air 05/03 1027 98.2 115 19 130/80 94 Room Air Intake & Output 05/04 1600 05/04 0800 05/04 0000 Intake Total 200 Output Total Balance 200 Intake, Oral 200 Patient 370 lb Weight Weight Reported by Patient Measurement Method Patient is awake alert oxygen saturation 4 L 91% exam of his chest shows decreased breath sounds occasional wheezes cardiac exam shows regular S1 and S2 without murmurs abdomen is soft nontender he has trace bilateral edema Last 48 Hrs of Labs/Isaias: Laboratory Tests 05/04/17 0740: Anion Gap 14, Estimated GFR > 60, BUN/Creatinine Ratio 22.0, CBC w Diff NO MAN DIFF REQ, RBC 5.17, MCV 90.2, MCH 29.2, MCHC 32.4 L, RDW 16.3 H, MPV 8.2, Gran % 90.8 H, Lymphocytes % 7.3 L, Monocytes % 1.6 L, Eosinophils % 0, Basophils % 0.3, Absolute Granulocytes 7.6 H, Absolute Lymphocytes 0.6 L, Absolute Monocytes 0.1, Absolute Eosinophils 0, Absolute Basophils 0 05/03/17 1031: Anion Gap 9, Estimated GFR > 60, BUN/Creatinine Ratio 23.3, Glucose 112 H, Hemoglobin A1c 6.9 H, Calcium 8.9, Total Bilirubin 1.0, AST 23, ALT 37, Alkaline Phosphatase 93, Troponin I < 0.01, Pzq-H-Jafhbtnkzsz Pept 1880 H, Total Protein 7.2, Albumin 3.8, Globulin 3.4, Albumin/Globulin Ratio 1.1, TSH 2.680, D-Dimer High Sensitivty < 200, CBC w Diff NO MAN DIFF REQ, RBC 4.97, MCV 90.2, MCH 29.3, MCHC 32.5 L, RDW 16.4 H, MPV 7.6, Gran % 83.0 H, Lymphocytes % 9.0 L, Monocytes % 6.6, Eosinophils % 0.6, Basophils % 0.8, Absolute Granulocytes 7.6 H, Absolute Lymphocytes 0.8 L, Absolute Monocytes 0.6, Absolute Eosinophils 0.1, Absolute Basophils 0.1 Microbiology 05/03 1334 NASOPHARYN: Influenza Virus A & B Rapid Smear - COMP Assessment/Plan Impression/Plan: 56-year-old with chronic hypercapnic respiratory failure due to sleep apnea and obesity admitted with acute toxic respiratory failure secondary to bronchitis CT scan suggests the possibility of an infiltrate versus mass follow-up with outpatient PET scan will be necessary Recommendations: Sputum culture continue antibiotics IV steroids BiPAP DVT prophylaxis should be evaluated by the prevention specialist in hopes of securing insurance as he will likely need home oxygen and BiPAP. Consult Acknowledgment - Thank you for your consult request.
[2017-05-04 14:20] VITALS: BP 140/81
--- NOTE | 2017-05-04 15:26 | Cons- Podiatry ---
General Information and HPI Consulting Request Date of Consult: 05/04/17 Requested By: Devon Carvajal MD History of Present Illness: Tj is a 56 year old male admitted for a COPD exacerbation who was noted on physical exam to have a chronic ulcer to his right great toe. Allergies/Medications Allergies: Coded Allergies: NO KNOWN ALLERGIES (09/21/13) Home Med List: Azithromycin 500 MG TABLET 1 TAB PO DAILY copd Budesonide/Formoterol Fumarate (Symbicort 160-4.5 Mcg Inhaler) 160 MCG-4.5 MCG/ ACTUATION HFA.AER.AD 2 PUF INH BID copd Ipratropium/Albuterol Sulfate (Combivent Respimat Inhal [place]) 20 MCG-100 MCG/ ACTUATION MIST.INHAL 1 NS IH DAILY copd Metformin HCl 500 MG TABLET 1 TAB PO BID DIABETES (Reported) Prednisone 20 MG TABLET 2 TAB PO DAILY copd Past History Medical History Blood Transfusion Hx: No Neurological: NONE EENT: NONE Cardiovascular: aflutter Respiratory: COPD Gastrointestinal: NONE Hepatic: NONE Renal: NONE Musculoskeletal: NONE Psychiatric: NONE Endocrine: diabetes Blood Disorders: NONE 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 self Services at Home: None Smoking Status: Current Everyday Smoker ETOH Use: denies use Illicit Drug Use: denies illicit drug use Assessment/Plan Consult Acknowledgment - Thank you for your consult request.
--- NOTE | 2017-05-04 18:05 | RADIOLOGY REPORT ---
EXAMINATION: RIGHT FOOT 3 VIEWS CLINICAL INFORMATION: First digit osteomyelitis. Chronic ulcer. COMPARISON: None. TECHNIQUE: AP, lateral, oblique views of the right foot were obtained. FINDINGS: There is soft tissue swelling to the first digit. There are no fractures. There is no bony destruction. There are calcaneal spurs present. There is degenerative change noted within the midfoot. There is no ankle joint effusion. IMPRESSION: Soft tissue swelling without bony destruction. Calcaneal spurs.
[2017-05-04 22:26] VITALS: BP 138/60
[2017-05-05 06:20] VITALS: BP 118/70
--- NOTE | 2017-05-05 07:42 | PN- Housestaff ---
See Addendum Subjective Follow-up For: COPD, JOHN Subjective: NETTA. Patient feels good this morning, not having SOB or CP. His foot feels good too. He is worried about losing his job and not being able to pay his rent. Review of Systems Constitutional: Reports: no symptoms. EENTM: Reports: no symptoms. Cardiovascular: Reports: no symptoms. Respiratory: Reports: see HPI. Gastrointestinal: Reports: no symptoms. Genitourinary: Reports: no symptoms. Musculoskeletal: Reports: no symptoms. Skin: Reports: no symptoms. Neurological/Psychological: Reports: no symptoms. Hematologic/Endocrine: Reports: no symptoms. Immunologic/Allergic: Reports: no symptoms. Objective Last 24 Hrs of Vital Signs/I&O Vital Signs Date Time Temp Pulse Resp B/P B/P Pulse O2 O2 Flow FiO2 Mean Ox Delivery Rate 05/05 0620 98.4 112 20 118/70 92 Nasal 5.0L Cannula 05/05 0038 116 91 05/05 0000 CPAP 05/04 2226 98.1 117 20 138/60 91 Nasal Cannula 05/04 2002 91 Nasal 5.0L Cannula 05/04 1600 Nasal 4.0L Cannula 05/04 1420 98.2 118 20 140/81 91 05/04 0815 91 Nasal 4.0L Cannula Intake & Output 05/05 0800 05/05 0000 05/04 1600 Intake Total 480 200 Output Total Balance 480 200 Intake, Oral 480 200 Physical Exam General Appearance: Alert, Oriented X3, Cooperative, No Acute Distress Cardiovascular: Normal S1, Normal S2, tachy Lungs: mild-moderate wheezing Abdomen: Normal Bowel Sounds, Soft, No Tenderness, obese Neurological: Normal Speech Extremities: stable Current Medications: Current Medications Sig/Denny Start time Last Medication Dose Route Stop Time Status Admin Albuterol Sulfate 3 ML TID 05/03 2200 AC 05/04 INH 2000 Albuterol Sulfate 3 ML Q4P PRN 05/03 1900 AC INH Azithromycin 250 MG DAILY 05/04 1000 AC 05/04 PO 0844 Enoxaparin Sodium 40 MG DAILY 05/04 1000 AC SC Gabapentin 100 MG Q8H 05/04 1000 AC 05/05 PO 0136 Insulin Aspart 0 TIDAC 05/04 0800 AC SC Ipratropium [place] 2.5 ML TID 05/03 2200 AC 05/04 INH 1959 Methylprednisolone 40 MG Q8 05/03 1731 AC 05/05 IV 0605 Patient Medication 1 ED ONE ONE 05/04 1100 DC 05/04 Teaching ED 05/04 1101 1141 Assessment/Plan Assessment: 56 YO M former smoker (quit 3 weeks back, 1 pack/d for 40 yrs) with PMH of COPD not on home O2, JOHN not using CPAP any more due to insurance problem, proxysmal A.fib not on anticoagulation and DM on metformin presented to ED with progressively worsening shortness of breath and productive cough for last 10 days. Problem list: 1. Acute hypoxic respiratory failure secondary to COPD exacerbation 2. Incidental finding on CT 3. Right great toe ulcer #Acute hypoxic respiratory failure secondary to COPD exacerbation: Patient is a former smoker but not on home oxygen. He has obesity and JOHN but does not use CPAP at home due to insurance issues. His breathing has much improved since last night. -Pulmonology recs -Methylprednisolone 40 mg every 8 hours -Azithromycin -TRC nebs -Guaifenesin -Follow cultures #Incidental finding on CT: CT imaging shows 17 mm rounded opacity within the posterior basal segment of the left lower lobe. He may need follow-up in 3 months and/or biopsy. He is at high risk for malignancy given his smoking history. -Appreciate pulmonology recommendations #Right great toe ulcer: No active bleeding or signs of infection. X-ray shows no fracture or osteomyelitis. -Podiatry recs #Chronic medical problems: Continue home medications DVT prophylaxis with enoxaparin Consistent carbohydrate 2 DNR/DNI Problem List: 1. COPD exacerbation Pain Ratin Pain Location: no Pain Goal: Remain pain free Pain Plan: seea/p Tomorrow's Labs & Rationales: no
--- NOTE | 2017-05-05 08:13 | PN- Pulmonary ---
Subjective HPI/Critical Care Issues: Patient shortness of breath appears improved though he continues to be oxygen dependent Objective Current Medications: Current Medications Sig/Denny Start time Last Medication Dose Route Stop Time Status Admin Albuterol Sulfate 3 ML TID 05/03 2200 AC 05/04 INH 2000 Albuterol Sulfate 3 ML Q4P PRN 05/03 1900 AC INH Azithromycin 250 MG DAILY 05/04 1000 AC 05/04 PO 0844 Enoxaparin Sodium 40 MG DAILY 05/04 1000 AC SC Gabapentin 100 MG Q8H 05/04 1000 AC 05/05 PO 0136 Insulin Aspart 0 TIDAC 05/04 0800 AC SC Ipratropium [place] 2.5 ML TID 05/03 2200 AC 05/04 INH 1959 Methylprednisolone 40 MG Q8 05/03 1731 AC 05/05 IV 0605 Patient Medication 1 ED ONE ONE 05/04 1100 DC 05/04 Teaching ED 05/04 1101 1141 Vital Signs & I&O Last 24 Hrs of Vitals and I&O: Vital Signs Date Time Temp Pulse Resp B/P B/P Pulse O2 O2 Flow FiO2 Mean Ox Delivery Rate 05/05 0620 98.4 112 20 118/70 92 Nasal 5.0L Cannula 05/05 0038 116 91 05/05 0000 CPAP 05/04 2226 98.1 117 20 138/60 91 Nasal Cannula 05/04 2002 91 Nasal 5.0L Cannula 05/04 1600 Nasal 4.0L Cannula 05/04 1420 98.2 118 20 140/81 91 05/04 0815 91 Nasal 4.0L Cannula Intake & Output 05/05 1600 05/05 0800 05/05 0000 Intake Total 480 Output Total Balance 480 Intake, Oral 480 Since saturation 5 L 91% exam of his chest shows diminished breath sounds there are no wheezes cardiac exam shows regular S1 and S2 edema has diminished Impression/Plan Impression/Plan Impression/Plan: 56-year-old with chronic hypercapnic respiratory failure due to sleep apnea and obesity admitted with acute hypoxic respiratory failure secondary to bronchitis CT scan suggests the possibility of an infiltrate versus mass follow-up with outpatient PET scan will be necessary patient will likely need chronic supplemental oxygen and nocturnal BiPAP pending sleep study. A cardiac ultrasound should be pursued Recommendations: Sputum culture continue antibiotics IV steroids BiPAP DVT prophylaxis should be evaluated by the parts counter specialist in hopes of securing insurance as he will likely need home oxygen and BiPAP. Obtain cardiac ultrasound Taper FiO2 his saturations allow
[2017-05-05 14:44] VITALS: BP 150/90
--- NOTE | 2017-05-05 15:08 | PN- Podiatry ---
Subjective Subjective: This is a 56-year-old diabetic obese male seen and evaluated at bedside for follow-up on a partial-thickness ulceration of the right great toe medially. Patient was radiographed after being seen by Joe Howard DPM yesterday, and the radiograph showed on anteroposterior view a questionable erosion on the medial aspect of the interphalangeal joint of the great toe at the base of the distal phalanx. The patient is seen and evaluated at bedside in no apparent distress, denying fever, chills, nausea, vomiting, diaphoresis, shortness of breath, chest pain at the time of my examination. He is on oxygen 24 hours a day via nasal cannula. The patient denies a history of full-thickness ulceration at the site, reports having seen Dr. Howard on a regular basis in the past. Review of Systems: A 14 point review of systems was performed, and was found to be negative apart from the patient's complaints described above in the history of present illness. Objective Vital Signs and I&Os Vital Signs Date Time Temp Pulse Resp B/P B/P Pulse O2 O2 Flow FiO2 Mean Ox Delivery Rate 05/05 1444 98.0 120 20 150/90 90 05/05 0826 92 Nasal 5.0L Cannula 05/05 0825 95 05/05 0800 Nasal 5.0L Cannula 05/05 0620 98.4 112 20 118/70 92 Nasal 5.0L Cannula 05/05 0038 116 91 05/05 0000 CPAP 05/04 2226 98.1 117 20 138/60 91 Nasal Cannula 05/04 2002 91 Nasal 5.0L Cannula 05/04 1600 Nasal 4.0L Cannula Intake & Output 05/05 1600 05/05 0800 05/05 0000 05/04 1600 05/04 0800 05/04 0000 Intake Total 400 480 200 200 Output Total Balance 400 480 200 200 Intake, Oral 400 480 200 200 Patient 370 lb Weight Weight Reported by Patient Measurement Method Physical Exam: The patient has diminished pedal pulses bilaterally, 1 out of 4 dorsalis pedis and posterior tibial equal and bilateral. Normal temperature gradient warm to cool proximal to distal in both lower extremities equal and bilateral. Capillary refill time is 3 seconds across all 10 toes. There is hair loss dorsal and bilateral, atrophic skin dorsal and bilateral, faint varicosities dorsal and bilateral. Patient has diminished gross sensation in the forefoot and midfoot equal and bilateral. There is +1 global edema of both lower extremities that is nonpitting. There is no erythema, no calor, no malodor, no drainage. There is a pre-ulcerative hyperkeratosis on the medial aspect of the patient's right great toe at the level of the interphalangeal joint. Upon debridement there is exposed dermis, but no full-thickness ulceration and no other clinical signs of acute infection. Current Medications: Current Medications Sig/Denny Start time Last Medication Dose Route Stop Time Status Admin Albuterol Sulfate 3 ML TID 05/03 2200 AC 05/05 INH 1309 Albuterol Sulfate 3 ML Q4P PRN 05/03 1900 AC INH Azithromycin 250 MG DAILY 05/04 1000 AC 05/05 PO 0915 Enoxaparin Sodium 40 MG DAILY 05/04 1000 AC SC Gabapentin 100 MG Q8H 05/04 1000 AC 05/05 PO 0915 Insulin Aspart 0 TIDAC 05/04 0800 AC 05/05 SC 1254 Ipratropium [place] 2.5 ML TID 05/03 2200 AC 05/05 INH 1309 Methylprednisolone 40 MG Q8 05/03 1731 AC 05/05 IV 0605 Patient Medication 1 ED ONE ONE 05/05 1330 DC Teaching ED 05/05 1331 Results Last 48 Hours of Labs: Laboratory Tests 05/04 0740 Chemistry Sodium (137 - 145 mmol/L) 140 Potassium (3.5 - 5.1 mmol/L) 4.8 Chloride (98 - 107 mmol/L) 96 L Carbon Dioxide (22 - 30 mmol/L) 30 Anion Gap (5 - 16) 14 BUN (9 - 20 mg/dL) 22 H Creatinine (0.7 - 1.2 mg/dL) 1.0 Estimated GFR (>60 ml/min) > 60 BUN/Creatinine Ratio (7 - 25 %) 22.0 Hematology CBC w Diff NO MAN DIFF REQ WBC (4.8 - 10.8 /CUMM) 8.4 RBC (4.70 - 6.10 /CUMM) 5.17 Hgb (14.0 - 18.0 G/DL) 15.1 Hct (42 - 52 %) 46.6 MCV (80.0 - 94.0 FL) 90.2 MCH (27.0 - 31.0 PG) 29.2 MCHC (33.0 - 37.0 G/DL) 32.4 L RDW (11.5 - 14.5 %) 16.3 H Plt Count (130 - 400 /CUMM) 214 MPV (7.4 - 10.4 FL) 8.2 Gran % (42.2 - 75.2 %) 90.8 H Lymphocytes % (20.5 - 51.1 %) 7.3 L Monocytes % (1.7 - 9.3 %) 1.6 L Eosinophils % (0 - 5 %) 0 Basophils % (0.0 - 2.0 %) 0.3 Absolute Granulocytes (1.4 - 6.5 /CUMM) 7.6 H Absolute Lymphocytes (1.2 - 3.4 /CUMM) 0.6 L Absolute Monocytes (0.10 - 0.60 /CUMM) 0.1 Absolute Eosinophils (0.0 - 0.7 /CUMM) 0 Absolute Basophils (0.0 - 0.2 /CUMM) 0 Recent Imaging Studies: Radiographs of the right foot are reviewed. Patient has significant degenerative changes both in the interphalangeal joints and in the midtarsal joints. Upon correlating the medial aspect of the base of the first distal phalanx with clinical findings and the other 2 views in the set, the cortical integrity appears to be intact. There is no soft tissue gas. There are no fractures. Assessment/Plan Assessment/Plan 56-year-old diabetic male with peripheral neuropathy and a pre-ulcerative partial-thickness lesion on the medial aspect of right hallux. The plan is as follows: 1. The patient was seen and evaluated at bedside in the radiographs are reviewed. 2. The pre-ulcerative hyperkeratotic lesion was debrided with a sterile #15 disposable scalpel down to dermis, and the devitalized tissue was removed. This was dressed with antibiotic ointment and a Band-Aid. This should be his daily regimen both during this admission and as an outpatient. 3. I do not believe the patient to have any clinical or radiographic evidence of acute osteomyelitis after examination and review. However, he is at risk for more significant neuropathic ulcerations if he is not unprotective shoes. The patient has refused these in the past secondary to there not being compatible with his job, but if he in fact cannot return to work secondary to his comorbidities, I would recommend that he get accommodative diabetic shoes as soon as possible upon discharge. 4. The patient was given my business card, and is instructed to follow-up in our [place] office for further prophylactic care, I'm available for further discussion and/or reconsultation at [phone]. Thank you for your consultation.
--- NOTE | 2017-05-05 15:31 | RADIOLOGY REPORT ---
EXAMINATION: XR CHEST CLINICAL INFORMATION: Increasing O2 requirement COMPARISON: Chest x-ray 05/03/2017 TECHNIQUE: 2 views of the chest were obtained. FINDINGS: Lateral view is underpenetrated limited by body habitus Lungs are clear. No pulmonary vascular congestion. There is no pleural effusion. The heart size is normal. The cardiac and mediastinal contours are normal. There are calcifications of the thoracic aorta. There are multilevel degenerative changes of dorsal spine. Orthopedic plate and screw at lower cervical spine. IMPRESSION: No acute abnormality of the chest.
[2017-05-05 22:26] VITALS: BP 126/80
[2017-05-06 06:00] VITALS: BP 124/78
--- NOTE | 2017-05-06 07:47 | PN- Housestaff ---
See Addendum Subjective Follow-up For: COPD Subjective: No overnight events. Patient continues to feel depressed and frustrated by his situation. Says he doesn't care about his medical issues. No CP, SOB, or other complaints. Review of Systems Constitutional: Reports: no symptoms. EENTM: Reports: no symptoms. Cardiovascular: Reports: no symptoms. Respiratory: Reports: see HPI. Gastrointestinal: Reports: no symptoms. Genitourinary: Reports: no symptoms. Musculoskeletal: Reports: no symptoms. Skin: Reports: no symptoms. Neurological/Psychological: Reports: no symptoms. Hematologic/Endocrine: Reports: no symptoms. Immunologic/Allergic: Reports: no symptoms. Objective Last 24 Hrs of Vital Signs/I&O Vital Signs Date Time Temp Pulse Resp B/P B/P Pulse O2 O2 Flow FiO2 Mean Ox Delivery Rate 05/06 0600 98.0 116 20 124/78 94 Nasal Cannula 05/06 0106 116 92 05/06 0000 Nasal 3.0L Cannula 05/05 2240 112 95 05/05 2226 97.9 118 20 126/80 91 05/05 1850 90 Nasal 5.0L Cannula 05/05 1600 Nasal 3.5L Cannula 05/05 1444 98.0 120 20 150/90 90 05/05 0826 92 Nasal 5.0L Cannula 05/05 0825 95 05/05 0800 Nasal 5.0L Cannula Intake & Output 05/06 0800 05/06 0000 05/05 1600 Intake Total 300 100 800 Output Total Balance 300 100 800 Intake, Oral 300 100 800 Physical Exam General Appearance: Alert, Oriented X3, Cooperative, No Acute Distress Cardiovascular: Normal S1, Normal S2, tachy Lungs: Clear to Auscultation Abdomen: Normal Bowel Sounds, Soft, No Tenderness Neurological: Normal Speech Extremities: No Edema, Normal Pulses, No Tenderness/Swelling Current Medications: Current Medications Sig/Denny Start time Last Medication Dose Route Stop Time Status Admin Albuterol Sulfate 3 ML TID 05/03 2200 AC 05/05 INH 1850 Albuterol Sulfate 3 ML Q4P PRN 05/03 1900 AC INH Azithromycin 250 MG DAILY 05/04 1000 AC 05/05 PO 0915 Enoxaparin Sodium 40 MG DAILY 05/04 1000 AC SC Gabapentin 100 MG Q8H 05/04 1000 AC 05/06 PO 0202 Insulin Aspart 0 TIDAC 05/04 0800 AC 05/05 SC 1254 Ipratropium [place] 2.5 ML TID 05/03 2200 AC 05/05 INH 1850 Methylprednisolone 40 MG Q8 05/03 1731 05/06 IV 0625 Patient Medication 1 ED ONE ONE 05/05 1330 DC 05/05 Teaching ED 05/05 1331 1533 Assessment/Plan Assessment: 56 YO M former smoker (quit 3 weeks back, 1 pack/d for 40 yrs) with PMH of COPD not on home O2, JOHN not using CPAP any more due to insurance problem, proxysmal A.fib not on anticoagulation and DM on metformin presented to ED with progressively worsening shortness of breath and productive cough for last 10 days. Problem list: 1. Acute hypoxic respiratory failure secondary to COPD exacerbation 2. Incidental finding on CT 3. Right great toe ulcer 4. Sinus tachycardia 5. Insurance issues 6. Depression #Acute hypoxic respiratory failure secondary to COPD exacerbation: Patient is a former smoker but not on home oxygen. He has obesity and JOHN but does not use CPAP at home due to insurance issues. His breathing has much improved since last night. -Pulmonology recs -Methylprednisolone 40 mg every 12 hours -Azithromycin -TRC nebs -Guaifenesin -Follow cultures #Sinus tachycardia: Patient has been persistently tachycardic in the [id number]. EKGs are consistent with sinus tachycardia and a right bundle branch block. -Echocardiogram -Cardiology consult #Incidental finding on CT: CT imaging shows 17 mm rounded opacity within the posterior basal segment of the left lower lobe. He may need follow-up in 3 months and/or biopsy. He is at high risk for malignancy given his smoking history. -Appreciate pulmonology recommendations #Right great toe ulcer: No active bleeding or signs of infection. X-ray shows no fracture or osteomyelitis. -Podiatry recs -Diabetic shoes #Insurance issues: Patient does not have any insurance and is at risk for losing his job. -Social work consult -Case management recommendations appreciated #Depression: Patient has depressed affect and has expressed significant depression/anxiety. He does not seem to care about his medical conditions and only cares about retaining his job. -Psychiatry consult #Chronic medical problems: -Continue home medications DVT prophylaxis with enoxaparin Consistent carbohydrate 2 DNR/DNI Problem List: 1. COPD exacerbation Pain Ratin Pain Location: no Pain Goal: Remain pain free Pain Plan: see a/p Tomorrow's Labs & Rationales: no
--- NOTE | 2017-05-06 08:05 | PN- Pulmonary ---
Subjective HPI/Critical Care Issues: Patient is comfortable but remains oxygen dependent Objective Current Medications: Current Medications Sig/Denny Start time Last Medication Dose Route Stop Time Status Admin Albuterol Sulfate 3 ML TID 05/03 2200 AC 05/05 INH 1850 Albuterol Sulfate 3 ML Q4P PRN 05/03 1900 AC INH Azithromycin 250 MG DAILY 05/04 1000 AC 05/05 PO 0915 Enoxaparin Sodium 40 MG DAILY 05/04 1000 AC SC Gabapentin 100 MG Q8H 05/04 1000 AC 05/06 PO 0202 Insulin Aspart 0 TIDAC 05/04 0800 AC 05/05 SC 1254 Ipratropium [place] 2.5 ML TID 05/03 2200 AC 05/05 INH 1850 Methylprednisolone 40 MG Q8 05/03 1731 AC 05/06 IV 0625 Patient Medication 1 ED ONE ONE 05/05 1330 DC 05/05 Teaching ED 05/05 1331 1533 Vital Signs & I&O Last 24 Hrs of Vitals and I&O: Vital Signs Date Time Temp Pulse Resp B/P B/P Pulse O2 O2 Flow FiO2 Mean Ox Delivery Rate 05/06 0600 98.0 116 20 124/78 94 Nasal Cannula 05/06 0106 116 92 05/06 0000 Nasal 3.0L Cannula 05/05 2240 112 95 05/05 2226 97.9 118 20 126/80 91 05/05 1850 90 Nasal 5.0L Cannula 05/05 1600 Nasal 3.5L Cannula 05/05 1444 98.0 120 20 150/90 90 05/05 0826 92 Nasal 5.0L Cannula 05/05 0825 95 Intake & Output 05/06 1600 05/06 0800 05/06 0000 Intake Total 300 100 Output Total Balance 300 100 Intake, Oral 300 100 Since saturation 3 L 94% exam of his chest shows diminished breath sounds cardiac exam shows regular S1 and S2 without murmurs Impression/Plan Impression/Plan Impression/Plan: 56-year-old with chronic hypercapnic respiratory failure due to sleep apnea and obesity admitted with acute hypoxic respiratory failure secondary to bronchitis CT scan suggests the possibility of an infiltrate versus mass follow-up with outpatient PET scan will be necessary patient will likely need chronic supplemental oxygen and nocturnal BiPAP pending sleep study. A cardiac ultrasound should be pursued patient's respiratory status is approaching baseline. With DC IV Solu-Medrol rapidly taper of by mouth prednisone Recommendations: Convert to oral steroids antibiotics and rapidly taper prednisone taper FiO2. Await determination on insurances he will need outpatient BiPAP and supplemental oxygen
--- NOTE | 2017-05-06 10:30 | Cons- Psychiatry ---
Psychiatric Consult Date of Consult: 05/06/17 Reason for Consult: "pt has no insurance, has multiple conditions and can't pay his meds, had hx of depression, and looks depressed." History of Present Illness: 56 M presented to the ED on 05/03/17 @ 1028 with a CC of worsening SOB for 10-14 days. Per the H&P: "Patient reported that he was diagnosed with COPD 1 year back and since then he is using inhalers but for last couple of days he is not able to use inhaler because of insurance. He also reported that he was diagnosed with obstructive sleep apnea but due to insurance problem he is not able to use CPAP machine. Last time patient was [facility] in [facility] with acute hypoxic respiratory failure due to COPD exacerbation in May 2016. Last echocardiogram was done in May 2016 that showing ejection fraction 55-60% with right ventricle systolic pressure 46 mmHg and mild pulmonary hypertension." Also, PMH includes admission last May for a similar respiratory complaint, and also admission in 2013 with multiple problems. Allergies: Coded Allergies: NO KNOWN ALLERGIES (09/21/13) Current Medications: Current Medications Sig/Denny Start time Last Medication Dose Route Stop Time Status Admin Albuterol Sulfate 3 ML TID 05/03 2200 AC 05/06 INH 0856 Albuterol Sulfate 3 ML Q4P PRN 05/03 1900 AC INH Azithromycin 250 MG DAILY 05/04 1000 AC 05/06 PO 0850 Enoxaparin Sodium 40 MG DAILY 05/04 1000 AC SC Gabapentin 100 MG Q8H 05/04 1000 AC 05/06 PO 0850 Insulin Aspart 0 TIDAC 05/04 0800 AC 05/05 SC 1254 Ipratropium [place] 2.5 ML TID 05/03 2200 AC 05/06 INH 0856 Methylprednisolone 40 MG Q12 05/06 2200 AC IV Methylprednisolone 40 MG Q8 05/03 1731 DC 05/06 IV 0625 Patient Medication 1 ED ONE ONE 05/05 1330 DC 05/05 Teaching ED 05/05 1331 1533 Past History Past Medical History Neurological: NONE EENT: NONE Cardiovascular: aflutter Respiratory: COPD, Per older note, Hx JOHN Gastrointestinal: NONE Hepatic: NONE Renal: NONE Musculoskeletal: NONE Psychiatric: Hx of brief Tx for depression and anxiety, R/T neck surgery. 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 Psychiatric Treatment History Psych Treatment Psychiatric Treatment Yes Inpatient Treatment No Outpatient Treatment Yes Location of Treatment PCP office Reason for Treatment Depression and anxiety about upcoming neck surgery Dates of Treatment 3+ years ago. Response to Treatment Lexapro unknown dose by PCP for 2-3 months, probably no titration. Diagnosis: F32.9 Major depressive disorder, unspecified Risk Factors: chronic/serious med cond., lives alone, male Substance Use/Abuse History Drug Use/Abuse Substances Used/Abused No (Denies) Substance Abuse Treatment Substance Abuse Treatment Past Substance Abuse [place] No Comments: Occasional two beers with friends on a weekend. Cannabis has made him paranoid, and he no longer uses it Assessment/Plan Mental Status Orientation: Person, Place, Situation Affect: Constricted Speech: WNL Neuro-vegetative: Helpless Lab Results: Laboratory Tests 05/04 0740 Chemistry Sodium (137 - 145 mmol/L) 140 Potassium (3.5 - 5.1 mmol/L) 4.8 Chloride (98 - 107 mmol/L) 96 L Carbon Dioxide (22 - 30 mmol/L) 30 Anion Gap (5 - 16) 14 BUN (9 - 20 mg/dL) 22 H Creatinine (0.7 - 1.2 mg/dL) 1.0 Estimated GFR (>60 ml/min) > 60 BUN/Creatinine Ratio (7 - 25 %) 22.0 Hematology CBC w Diff NO MAN DIFF REQ WBC (4.8 - 10.8 /CUMM) 8.4 RBC (4.70 - 6.10 /CUMM) 5.17 Hgb (14.0 - 18.0 G/DL) 15.1 Hct (42 - 52 %) 46.6 MCV (80.0 - 94.0 FL) 90.2 MCH (27.0 - 31.0 PG) 29.2 MCHC (33.0 - 37.0 G/DL) 32.4 L RDW (11.5 - 14.5 %) 16.3 H Plt Count (130 - 400 /CUMM) 214 MPV (7.4 - 10.4 FL) 8.2 Gran % (42.2 - 75.2 %) 90.8 H Lymphocytes % (20.5 - 51.1 %) 7.3 L Monocytes % (1.7 - 9.3 %) 1.6 L Eosinophils % (0 - 5 %) 0 Basophils % (0.0 - 2.0 %) 0.3 Absolute Granulocytes (1.4 - 6.5 /CUMM) 7.6 H Absolute Lymphocytes (1.2 - 3.4 /CUMM) 0.6 L Absolute Monocytes (0.10 - 0.60 /CUMM) 0.1 Absolute Eosinophils (0.0 - 0.7 /CUMM) 0 Absolute Basophils (0.0 - 0.2 /CUMM) 0 Diffential Diagnosis: F32.9 Major depressive disorder, unspecified Provisional Treatment Plan: 1. Pending insurance application with [employer], we will offer the patient [facility] O[facility]. We can initiate this if the application is in process, and do not need to wait until full acceptance. 2. No medication interventions at this time. The patient is not suicidal, psychotic nor delirious. We will continue to follow along with you. Thank you for this consult.
[2017-05-06 14:20] VITALS: BP 127/82
[2017-05-06] MEDS ORDERED: GABAPENTIN100 M2 PO (15:32)
--- NOTE | 2017-05-06 16:23 | Cons- Cardiology ---
General Information and HPI Consulting Request Date of Consult: 05/06/17 Requested By: Devon Carvajal MD Reason for Consult: persistent sinus tachycardia with abnormal EKG Source of Information: patient, old records History of Present Illness: the patient is a 56-year-old male who was known to me from previous visits. He has a history of prior tobacco use as well as a history of COPD, sleep apnea, not on CPAP, paroxysmal atrial fibrillation, diabetes, etc. The patient was noted to the hospital with exacerbation of his underlying pulmonary disease and worsening shortness of breath with productive cough. I was asked to see the patient today for persistent sinus tachycardia. The patient's examination and ECG are otherwise unchanged. He does have underlying progression of his chronic lung disease. He denies any other cardiac symptoms. his last echocardiogram in early 2012 showed a normal ejection fraction of greater than 55-60% with mild pulmonary hypertension and a right ventricular systolic pressure of almost 50 mmHg. Allergies/Medications Allergies: Coded Allergies: NO KNOWN ALLERGIES (09/21/13) Home Med List: Azithromycin 500 MG TABLET 1 TAB PO DAILY copd Budesonide/Formoterol Fumarate (Symbicort 160-4.5 Mcg Inhaler) 160 MCG-4.5 MCG/ ACTUATION HFA.AER.AD 2 PUF INH BID copd Gabapentin 100 MG CAPSULE 100 MG PO Q8H Neuropathic pain Ipratropium/Albuterol Sulfate (Combivent Respimat Inhal [place]) 20 MCG-100 MCG/ ACTUATION MIST.INHAL 1 NS IH DAILY copd Metformin HCl 500 MG TABLET 1 TAB PO BID DIABETES (Reported) Prednisone 20 MG TABLET 2 TAB PO DAILY copd Current Medications: Current Medications Sig/Denny Start time Last Medication Dose Route Stop Time Status Admin Albuterol Sulfate 3 ML TID 05/03 2200 AC 05/06 INH 0856 Albuterol Sulfate 3 ML Q4P PRN 05/03 1900 AC INH Azithromycin 250 MG DAILY 05/04 1000 AC 05/06 PO 0850 Enoxaparin Sodium 40 MG DAILY 05/04 1000 AC SC Gabapentin 100 MG Q8H 05/04 1000 AC 05/06 PO 0850 Insulin Aspart 0 TIDAC 05/04 0800 AC 05/05 SC 1254 Ipratropium [place] 2.5 ML TID 05/03 2200 AC 05/06 INH 0856 Methylprednisolone 40 MG Q12 05/06 2200 AC IV 05/06 2300 Methylprednisolone 40 MG Q8 05/03 1731 DC 05/06 IV 0625 Prednisone 10 MG DAILY 05/10 1000 AC PO 05/11 0959 Prednisone 20 MG DAILY 05/09 1000 AC PO 05/10 0959 Prednisone 30 MG DAILY 05/08 1000 AC PO 05/09 0959 Prednisone 40 MG DAILY 05/07 1000 CAN PO Prednisone 40 MG DAILY 05/07 1000 CAN PO 05/11 0959 Prednisone 40 MG DAILY 05/07 1000 AC PO 05/08 0959 Past History Travel History Traveled to [place] past 21 day No Medical History Blood Transfusion Hx: No Neurological: NONE EENT: NONE Cardiovascular: aflutter Respiratory: COPD, Per older note, Hx JOHN Gastrointestinal: NONE Hepatic: NONE Renal: NONE Musculoskeletal: NONE Psychiatric: Hx of brief Tx for depression and anxiety, R/T neck surgery. 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 self Services at Home: None Smoking Status: Current Everyday Smoker ETOH Use: denies use Illicit Drug Use: denies illicit drug use Exam & Diagnostic Data Vital Signs and I&O Vital Signs Date Time Temp Pulse Resp B/P B/P Pulse O2 O2 Flow FiO2 Mean Ox Delivery Rate 05/06 1420 98.5 120 20 127/82 98 05/06 0921 92 Nasal 3.5L Cannula 05/06 0800 Nasal 3.5L Cannula 05/06 0600 98.0 116 20 124/78 94 Nasal Cannula 05/06 0106 116 92 05/06 0000 Nasal 3.0L Cannula 05/05 2240 112 95 05/05 2226 97.9 118 20 126/80 91 05/05 1850 90 Nasal 5.0L Cannula Intake & Output 05/06 1600 05/06 0800 05/06 0000 05/05 1600 05/05 0800 05/05 0000 Intake Total 1250 300 100 800 400 480 Output Total Balance 1250 300 100 800 400 480 Intake, Oral 1250 300 100 800 400 480 Physical Exam: General Appearance Alert, Oriented X3, Cooperative Skin Temp/Moisture Exam: Warm/Dry Sepsis Skin Exam (color): Normal for Ethnicity HEENT Atraumatic, PERRLA, EOMI Neck Supple, JVP elevated 2 cm at 45 Cardiovascular Normal S1, Normal S2, distant heart sounds, 1 to 2/6 systolic murmur tricuspid area Lungs B/L wheezing inspiratory, Decreased breath sounds Abdomen Soft, No Tenderness Neurological Normal Speech, Strength at 5/5 X4 Ext, Normal Tone, Sensation Intact Extremities B/L pedqal edema, Chronic venous changes, Right big toe diabetic ulcer with scab Assessment/Plan Assessment/Plan assessment: 1. Abnormal ECG with right bundle-branch block and persistent sinus tachycardia 2. Underlying COPD with exacerbation 3. Abnormal chest CT 4. Diabetes 5. Pulmonary hypertension Recommendations: -At the moment, I do not see any significant change in the patient's cardiac status. There are clearly other reasons for the patient's persistent sinus tachycardia including hypoxia, COPD, beta agonist nebulizers, etc. -For now I would continue current treatment -Consideration for pulmonary rehabilitation -I do not see any reason to acutely perform a follow-up echocardiogram in view of the recent echo from 2017. However, at some point, as an outpatient, a follow-up echocardiogram to reassess right particular systolic pressure might be useful. Consult Acknowledgment - Thank you for your consult request.
[2017-05-06 23:28] VITALS: BP 110/86
--- NOTE | 2017-05-07 07:45 | Patient Discharge Instructions ---
Discharge Instructions General Discharge Information You were seen/treated for: COPD exacerbation Watch for these problems: Fever, chest pain, shortness of breath Special Instructions: Please take all medications as directed. Please follow-up with primary care for disability and further care of her medical conditions. Please also follow up with pulmonology for PET scan for the lung nodule and with cardiology for echocardiogram. Diet Continue normal diet: Yes Recommended Diet: Diabetic, Heart Healthy Activity Full Activity/No Limits: Yes Acute Coronary Syndrome Inclusion Criteria At DC or during hospital stay patient has or had the following: ACS DIAGNOSIS No Discharge Core Measures Meds if any: Prescribed or Continued at Discharge Meds if any: NOT Prescribed or Continued at Discharge Congestive Heart Failure Inclusion Criteria At DC or during hospital stay patient has or had the following: CHF DIAGNOSIS No Discharge Core Measures Meds if any: Prescribed or Continued at Discharge Meds if any: NOT Prescribed or Continued at Discharge Cerebrovascular accident Inclusion Criteria At DC or during hospital stay patient has or had the following: CVA/TIA Diagnosis No Discharge Core Measures Meds if any: Prescribed or Continued at Discharge Meds if any: NOT Prescribed or Continued at Discharge Venous thromboembolism Inclusion Criteria VTE Diagnosis No VTE Type NONE VTE Confirmed by (Test) NONE Discharge Core Measures - Per Current guidelines, there needs to be overlap - treatment for the first 5 days of Warfarin therapy. - If discharged on Warfarin prior to 5 days of - overlap therapy, the patient will need to be - assessed for post discharge needs including - *Post discharge parental anticoagulation - *Warfarin and/or parental anticoagulation education - *Follow up date to check INR post discharge At least 5 days overlap therapy as Inpatient No Meds if any: Prescribed or Continued at Discharge Note: Overlap Therapy is Warfarin and Anticoagulant Meds if any: NOT Prescribed or Continued at Discharge
[2017-05-07] MEDS ORDERED: PREDNISONE10 M2 PO ×2 (07:46→10:45)
[2017-05-07 07:48] VITALS: BP 124/86
--- NOTE | 2017-05-07 07:50 | PN- Housestaff ---
See Addendum Subjective Follow-up For: COPD Subjective: No overnight events. Patients breathing continues to improve. He is feeling better about his situation, just concerned about the financial aspect but satisfied with not working. Review of Systems Constitutional: Reports: no symptoms. EENTM: Reports: no symptoms. Cardiovascular: Reports: no symptoms. Respiratory: Reports: see HPI. Gastrointestinal: Reports: no symptoms. Genitourinary: Reports: no symptoms. Musculoskeletal: Reports: no symptoms. Skin: Reports: no symptoms. Neurological/Psychological: Reports: no symptoms. Hematologic/Endocrine: Reports: no symptoms. Immunologic/Allergic: Reports: no symptoms. Objective Last 24 Hrs of Vital Signs/I&O Vital Signs Date Time Temp Pulse Resp B/P B/P Pulse O2 O2 Flow FiO2 Mean Ox Delivery Rate 05/07 0000 94 Nasal 3.0L Cannula 05/06 2328 98.4 88 22 110/86 92 Nasal 3.5L Cannula 05/06 1901 91 Nasal 3.5L Cannula 05/06 1420 98.5 120 20 127/82 98 05/06 0921 92 Nasal 3.5L Cannula 05/06 0800 Nasal 3.5L Cannula Intake & Output 05/07 0800 05/07 0000 05/06 1600 Intake Total 500 1250 Output Total Balance 500 1250 Intake, Oral 500 1250 Physical Exam General Appearance: Alert, Oriented X3, Cooperative, No Acute Distress Cardiovascular: Normal S1, Normal S2, tachy Lungs: mild crackles Abdomen: Normal Bowel Sounds, Soft, No Tenderness Neurological: Normal Speech Extremities: No Edema, Normal Pulses, No Tenderness/Swelling Current Medications: Current Medications Sig/Denny Start time Last Medication Dose Route Stop Time Status Admin Albuterol Sulfate 3 ML TID 05/030 AC 05/06 INH 1855 Albuterol Sulfate 3 ML Q4P PRN 05/03 1900 AC INH Azithromycin 250 MG DAILY 05/04 1000 AC 05/06 PO 0850 Enoxaparin Sodium 40 MG DAILY 05/04 1000 AC SC Gabapentin 100 MG Q8H 05/04 1000 AC 05/07 PO 0226 Insulin Aspart 0 TIDAC 05/04 0800 AC 05/05 SC 1254 Ipratropium [place] 2.5 ML TID 05/03 2200 AC 05/06 INH 1856 Methylprednisolone 40 MG Q12 05/06 2200 DC 05/06 IV 05/06 2300 2130 Methylprednisolone 40 MG Q8 05/03 1731 DC 05/06 IV 0625 Prednisone 10 MG DAILY 05/10 1000 AC PO 05/11 0959 Prednisone 20 MG DAILY 05/09 1000 AC PO 05/10 0959 Prednisone 30 MG DAILY 05/08 1000 AC PO 05/09 0959 Prednisone 40 MG DAILY 05/07 1000 CAN PO Prednisone 40 MG DAILY 05/07 1000 CAN PO 05/11 0959 Prednisone 40 MG DAILY 05/07 1000 AC PO 05/08 09 Assessment/Plan Assessment: 56 YO M former smoker (quit 3 weeks back, 1 pack/d for 40 yrs) with PMH of COPD not on home O2, JOHN not using CPAP any more due to insurance problem, proxysmal A.fib not on anticoagulation and DM on metformin presented to ED with progressively worsening shortness of breath and productive cough for last 10 days. Problem list: 1. Acute hypoxic respiratory failure secondary to COPD exacerbation 2. Incidental finding on CT 3. Right great toe ulcer 4. Sinus tachycardia 5. Insurance issues 6. Depression #Acute hypoxic respiratory failure secondary to COPD exacerbation: Patient is a former smoker but not on home oxygen. He has obesity and JOHN but does not use CPAP at home due to insurance issues. His breathing issues continued to improve, he is now saturating 94% on 3 L. However, he will likely need home oxygen at least temporarily. -Pulmonology recs -Prednisone taper -Azithromycin -TRC nebs -Guaifenesin -Follow cultures #Sinus tachycardia: Patient has been persistently tachycardic in the [id number]. EKGs are consistent with sinus tachycardia and a right bundle branch block. Cardiology evaluated and and recommended no intervention at this time. He'll follow-up with Dr. Corley as an outpatient for echocardiogram. -Outpatient follow-up #Incidental finding on CT: CT imaging shows 17 mm rounded opacity within the posterior basal segment of the left lower lobe. He may need follow-up in 3 months and/or biopsy. He is at high risk for malignancy given his smoking history. -Outpatient pulmonology follow-up #Right great toe ulcer: No active bleeding or signs of infection. X-ray shows no fracture or osteomyelitis. -Podiatry recs -Diabetic shoes #Insurance issues: Patient does not have any insurance and is at risk for losing his job. He does not believe he can work using oxygen and will likely need disability. -Social work consult -Case management recommendations appreciated #Depression: Patient has depressed affect and has expressed significant depression/anxiety. He does not seem to care about his medical conditions and only cares about retaining his job. Psychiatry evaluated and made no interventions at this time. -Appreciate psychiatry recommendations #Chronic medical problems: -Continue home medications DVT prophylaxis with enoxaparin Consistent carbohydrate 2 DNR/DNI Problem List: 1. COPD exacerbation Pain Ratin Pain Location: no Pain Goal: Remain pain free Pain Plan: see a/p Tomorrow's Labs & Rationales: no
--- NOTE | 2017-05-07 10:39 | Discharge Summary ---
Visit Information Visit Dates Admission Date: 05/03/17 Discharge Date: 05/07/17 Hospital Course Course Attending Physician: Devon Carvajal MD Primary Care Physician: Patient Has No Primary Care Dr Hospital Course: 56 YO M former smoker (quit 3 weeks back, 1 pack/d for 40 yrs) with PMH of COPD not on home O2, JOHN not using CPAP any more due to insurance problem, proxysmal A.fib not on anticoagulation and DM on metformin presented to ED with progressively worsening shortness of breath and productive cough for last 10 days. On admission, vital signs were T 98.2, HR 115, RR 19, BP 130/80, saturating 94% on room air. Laboratories were significant for normal CBCs, BUN 21, glucose 112, BNP 1880, troponin less than 0.01. D-dimer less than 200. Chest x-ray showed right lung base opacities possibly representing infectious infiltrate. Chest CT showed mild right greater than left bilateral bronchial wall thickening, a 17 mm rounded opacity within the posterior basal segment of the left lower lobe corresponding to infection versus inflammation versus underlying mass lesion, as well as ill-defined areas of opacification likely contracts representative of atelectasis. He was admitted to general medicine and treated with following problems: 1. Acute hypoxic respiratory failure secondary to COPD exacerbation 2. Incidental finding on CT 3. Right great toe ulcer 4. Sinus tachycardia 5. Insurance issues 6. Depression #Acute hypoxic respiratory failure secondary to COPD exacerbation: Patient is a former smoker but not on home oxygen prior to admission. He has obesity and JOHN but does not use CPAP at home due to insurance issues. He came in with shortness of breath and did desaturate to 86% with increasing oxygen requirements. He was placed on IV steroids, azithromycin, guaifenesin, and oxygen therapy. His breathing improved the course of several days. Repeat chest x-ray showed no acute abnormality of the chest. However he is still requiring 3.5 L of oxygen to maintain saturation above 88%. He will require home oxygen at least temporarily. #Sinus tachycardia: Patient was persistently tachycardic in the [id number]. EKGs were consistent with sinus tachycardia and a right bundle branch block. Cardiology evaluated and and recommended no intervention at this time. He'll follow-up with Dr. Elias as an outpatient for echocardiogram. #Incidental finding on CT: CT imaging shows 17 mm rounded opacity within the posterior basal segment of the left lower lobe. He may need follow-up in 3 months and/or biopsy. He is at high risk for malignancy given his smoking history. He should follow-up with pulmonology for this. #Right great toe ulcer: No active bleeding or signs of infection. X-ray shows no fracture or osteomyelitis. Podiatry evaluated and recommended diabetic shoes. He should follow-up with primary care for diabetic shoe. #Insurance issues: Patient does not have any insurance and is at risk for losing his job. He does not believe he can work using oxygen and will likely need disability. Social work was consulted and he was provided with 30 day supply of medications courtesy of [facility]. Application for insurance is also been submitted. He should follow up with primary care for further work on getting disability. #Depression: Patient has depressed affect and has expressed significant depression/anxiety. Psychiatry evaluated and made no interventions at this time. No suicidal/homicidal ideation. He can follow up with primary care for further care. #Chronic medical problems: All medications were continued. Allergies: Coded Allergies: NO KNOWN ALLERGIES (09/21/13) Disposition Summary Disposition Principal Diagnosis: 1. Acute hypoxic respiratory failure secondary to COPD exacerbation Additional Diagnosis: 2. Incidental finding on CT 3. Right great toe ulcer 4. Sinus tachycardia 5. Insurance issues 6. Depression Discharge Disposition: home or self care Discharge Instructions General Discharge Information Code Status: Do Not Resucitate/Intubat Patient's Diet: Diabetic and heart healthy diet Patient's Activity: As tolerated Follow-Up Instructions/Appts: Please take all medications as directed. Please follow-up with primary care for further care of his medical conditions and application for disability. Please follow-up with pulmonology for further care of the lung nodule and with cardiology for echocardiogram. Medications at Discharge Discharge Medications: Stop taking the following medications: Azithromycin (Azithromycin) 500 MG TABLET ORAL DAILY Qty = 3 Prednisone (Prednisone) 20 MG TABLET ORAL DAILY Qty = 3 Continue taking these medications: Ipratropium/Albuterol Sulfate (Combivent Respimat Inhal [place]) 20 MCG-100 MCG/ ACTUATION MIST.INHAL 1 Nasal spray INHALATION DAILY Qty = 1 This prescription has been renewed Budesonide/Formoterol Fumarate (Symbicort 160-4.5 Mcg Inhaler) 160 MCG-4.5 MCG/ ACTUATION HFA.AER.AD 2 Puff Inhale through mouth TWICE DAILY Qty = 1 This prescription has been renewed Metformin HCl (Metformin HCl) 500 MG TABLET 1 Tablet ORAL TWICE DAILY Qty = 60 This prescription has been renewed Start taking the following new medications: Gabapentin (Gabapentin) 100 MG CAPSULE 100 Milligram ORAL Q8H Qty = 90 No Refills Instructions: . Prednisone (Prednisone) 10 MG TABLET 1 Tablet ORAL DAILY Qty = 6 No Refills Instructions: Take 30mg on 05/08/17, 20mg on 05/09/17, and 10mg on 05/10/17, then stop Copies To: Brain FREEDMAN,Brain; Maninder FREEDMAN,Mike Jama; Berry Lovett MD; Anita CHRISTIANSON,Joe ; Ronnie Pederson APRN; Barney FREEDMAN,Rhina Gonzalez
[2017-05-07] MEDS ORDERED: GABAPENTIN100 M2 PO (10:45)
[2017-05-07] MEDS ORDERED: COMBIVENT RESPIM4 GM IH (10:45)
[2017-05-07] MEDS ORDERED: METFORMIN HCL500 M3 PO (10:45)
[2017-05-07] MEDS ORDERED: SYMBICORT 16010.2 GM INH (10:45)
--- NOTE | 2017-05-07 14:11 | PN- Cardiology ---
Objective Vital Signs and I&Os Vital Signs Date Time Temp Pulse Resp B/P B/P Pulse O2 O2 Flow FiO2 Mean Ox Delivery Rate 05/07 0906 92 Nasal 3.5L Cannula 05/07 0748 98.1 90 24 124/86 93 Nasal 3.5L Cannula 05/07 0000 94 Nasal 3.0L Cannula 05/06 2328 98.4 88 22 110/86 92 Nasal 3.5L Cannula 05/06 1901 91 Nasal 3.5L Cannula 05/06 1420 98.5 120 20 127/82 98 Intake & Output 05/07 1600 05/07 0800 05/07 0000 05/06 1600 05/06 0800 05/06 0000 Intake Total 845 269 4354 300 100 Output Total Balance 060 202 5598 300 100 Intake, Oral 101 744 4615 300 100 Current Medications: Current Medications Sig/Denny Start time Last Medication Dose Route Stop Time Status Admin Albuterol Sulfate 3 ML TID 05/03 2200 AC 05/07 INH 1332 Albuterol Sulfate 3 ML Q4P PRN 05/03 1900 AC INH Azithromycin 250 MG DAILY 05/04 1000 AC 05/07 PO 1009 Enoxaparin Sodium 40 MG DAILY 05/04 1000 AC SC Gabapentin 100 MG Q8H 05/04 1000 AC 05/07 PO 1009 Ibuprofen 400 MG ONCE ONE 05/07 1015 DC 05/07 PO 05/07 1016 1214 Insulin Aspart 0 TIDAC 05/04 0800 AC 05/05 SC 1254 Ipratropium [place] 2.5 ML TID 05/03 2200 AC 05/07 INH 1332 Methylprednisolone 40 MG Q12 05/06 2200 DC 05/06 IV 05/06 2300 2130 Prednisone 10 MG DAILY 05/10 1000 AC PO 05/11 0959 Prednisone 20 MG DAILY 05/09 1000 AC PO 05/10 0959 Prednisone 30 MG DAILY 05/08 1000 AC PO 05/09 0959 Prednisone 40 MG DAILY 05/07 1000 AC 05/07 PO 05/08 0959 1009
[2017-05-07 14:17] VITALS: BP 122/82
--- NOTE | 2017-05-07 19:14 | Incdntl Nt Psy ---
Incidental Note Notation: I re-visited the patient just before he discharged this evening, and found him alert and oriented, in euthymic mood, with full range affect. He is looking forward to going home and reports he feels much better. His insurance has been approved, and he is pursuing treatments for his breathing including a new oxygen concentator at home. I offered the patient an appointment at outpatient psychiatry, which he is going to think about. He has the contact information for that office. The patient is not suicidal, not psychotic, nor delirious, and is clear for discharge from a psychiatric viewpoint.
== END 2017-05-07 19:13 | DRG 133 ==
LOC: ERH 10:10 → ERHI 14:33 → 2NA 14:33 → ENRESERV 16:16 → ENTRNSPT 16:49 → EDTRNSPTSTS 17:04 → EDTRNSPT 17:04 → 2NA 17:15 → CMPTRNSPT 17:19 → ENPENDDIS 05-07 10:38 → 2NA 05-07 19:13
PROVIDERS: Physician Assistant Medical; Student in an Organized Health Care Education/Training Program
PROC: 5A09357 Assistance with Respiratory Ventilation, Less than 24 Consecutive Hours, Continuous Positive Airway Pressure (ICD-10-PCS; 2017-05-03)
PROC: 0HBMXZZ Excision of Right Foot Skin, External Approach (ICD-10-PCS; principal; 2017-05-05)
DX: J96.21 Acute and chronic respiratory failure with hypoxia (principal); J44.1 Chronic obstructive pulmonary disease with (acute) exacerbation; J96.22 Acute and chronic respiratory failure with hypercapnia; I27.20 Pulmonary hypertension, unspecified; E11.42 Type 2 diabetes mellitus with diabetic polyneuropathy; E11.621 Type 2 diabetes mellitus with foot ulcer; Z68.43 Body mass index [BMI] 50.0-59.9, adult; I48.0 Paroxysmal atrial fibrillation; L97.519 Non-pressure chronic ulcer of other part of right foot with unspecified severity; Z79.84 Long term (current) use of oral hypoglycemic drugs; E66.9 Obesity, unspecified; G47.33 Obstructive sleep apnea (adult) (pediatric); I45.10 Unspecified right bundle-branch block; R00.0 Tachycardia, unspecified; F32.9 Major depressive disorder, single episode, unspecified; Z66 Do not resuscitate; Z87.891 Personal history of nicotine dependence
CPT/HCPCS: 2NASP; 36592; 71046; 73630-RT; 82436; 87070; 87804; 87804-59; 93005; 93010; 99232; J0456; J0696; J1650; J2920; J7060; J7512